=== PATIENT | male | born 1955 | race Caucasian/White ===

== ENCOUNTER 2019-09-23 11:44 | Outpatient (CLI) | payer MEDICARE, SELFPAY ==
--- NOTE | ~2019-09-23 | XR_ITS ---
EXAMINATION: XR ankle RT min 3V DATE: 09/23/2019 12:03 INDICATION: Right ankle pain. TECHNIQUE: 4 views of right ankle were obtained. COMPARISON: None. FINDINGS: Bone alignment is normal. No fracture. There is mild midfoot osteoarthritis. There are enth esophytes at the posterior and plantar aspects of calcaneal tuberosity. IMPRESSION: 1. Mild midfoot osteoarthritis. Reviewed, dictated and finalized at location B.
== END 2019-09-23 11:45 | disposition home or self-care (01) ==
LOC: ANHIMG 11:49
PROVIDERS: PCP Family Medicine; Visit Provider Family Medicine
DX: M19.071 Primary osteoarthritis, right ankle and foot (principal)
CPT/HCPCS: 73610

== ENCOUNTER 2020-12-26 11:22 | Outpatient (CLI) | payer MEDICARE, SELFPAY ==
--- NOTE | ~2020-12-26 | US_ITS ---
EXAMINATION: US carotid duplex BI DATE: 12/26/2020 12:00 INDICATION: Transient ischemic attack. TECHNIQUE: Grayscale, color Doppler, and pulsed Doppler images of the cervical carotid arteries were obtained. The degree of vessel stenosis is placed in one of the following categories: normal, <50%, 5 0-69%, >=70% but less than near-occlusion, near-occlusion, or total occlusion. Note that percent sten osis relative to normal distal artery lumen diameter is indirectly measured from velocity measurement s as described by Jonah, et al. Radiology 2003; 229:340-346. COMPARISON: None. FINDINGS: RIGHT: The right common carotid artery (CCA) peak systolic velocity (PSV) is 85 cm/s. The right internal car otid artery (ICA) PSV is 58 cm/s. The right ICA end-diastolic velocity (EDV) is 6 cm/s. The right ICA /CCA PSV ratio is 0.7. Grayscale and color Doppler images yield an estimate of <50% diameter reductio n from plaque in the ICA. There is antegrade flow in the right vertebral artery. LEFT: The left CCA PSV is 84 cm/s. The left ICA PSV is 102 cm/s. The left ICA EDV is 26 cm/s. The left ICA/ CCA PSV ratio is 1.2. Grayscale and color Doppler images yield an estimate of <50% diameter reduction from plaque in the ICA. There is antegrade flow in the left vertebral artery. IMPRESSION: 1. <50% stenosis in the right internal carotid artery. 2. <50% stenosis in the left internal carotid artery. Reviewed, dictated and finalized at location A. 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
--- NOTE | ~2020-12-26 | CT_ITS ---
EXAMINATION: CT brain wo con DATE: 12/26/2020 12:05 INDICATION: Dizziness and giddiness. TECHNIQUE: Computed tomography (CT) of the head was performed without intravenous contrast. The mA wa s adjusted according to patient size. Iterative reconstruction technique was employed. The dose-lengt h product was 605.33 mGy-cm. COMPARISON: Head CT 08/11/2013, brain MRI 09/01/2018 FINDINGS: There are scattered areas of low attenuation in the cerebral white matter, which is within normal limits for the patient's age. There is no intracranial hemorrhage, acute infarction, or abnorm al intracranial mass lesion. The ventricles are normal in size. There is mild mucosal thickening in t he ethmoid sinuses. The mastoid air cells are normal. The orbits are normal. IMPRESSION: 1. Normal aging brain. Reviewed, dictated and finalized at location A. OR ADVISOR IMPRESSION: 1. Normal aging brain.
== END 2020-12-26 11:23 | disposition home or self-care (01) ==
LOC: ANHIMG 11:33
PROVIDERS: PCP Family Medicine; Visit Provider Family Medicine
DX: R42 Dizziness and giddiness (principal); I65.23 Occlusion and stenosis of bilateral carotid arteries
CPT/HCPCS: 70450; 93880

== ENCOUNTER 2022-10-21 11:27 | Observation (INO) | payer MEDICARE, SELFPAY ==
[2022-10-21] VITALS (54 sets, daily range): BP systolic 93–153; BP diastolic 64–102; PULSE 57–86; RESP 11–22; TEMP 36.3–36.6; O2SAT 95–100; BMI 32.7
--- NOTE | ~2022-10-21 | NM_ITS ---
EXAMINATION: NM morales stress w perfusion DATE: 10/22/2022 14:36 INDICATION: Chest pain. TECHNIQUE: Rest images were obtained following intravenous administration of 10.3 mCi Tc99m tetrofosm in (Myoview). The patient was infused intravenously with Lexiscan (regadenoson). Then, 32.0 mCi Tc99m tetrofosmin (Myoview) was administered intravenously, and stress images were obtained. Data was dorothea nstructed into short axis and horizontal and vertical long axis SPECT images. Gated SPECT images were also obtained. COMPARISON: CT abdomen and pelvis 02/11/19 FINDINGS: There is no definite reversible or fixed perfusion abnormality to suggest ischemia or infar ction. There is no segmental wall motion abnormality. Left ventricular ejection fraction measures > 70%. IMPRESSION: 1. No definite ischemia or infarct. 2. Normal left ventricular ejection fraction measuring >70%. Reviewed, dictated and finalized at location A.
--- NOTE | ~2022-10-21 | XR_ITS ---
EXAMINATION: XR chest 2V DATE: 10/21/2022 12:43 INDICATION: Left chest pain. TECHNIQUE: Frontal and lateral views of the chest were obtained. COMPARISON: Chest 2 views 07/03/2018 FINDINGS: There is no pneumonia, pleural effusion, or pneumothorax. The heart size is normal. Median sternotomy wires and mediastinal surgical clips are seen, likely from prior coronary artery bypass gr afting. There is an electronic device overlying right chest with electrode in right neck. Surgical cl ips in the right upper quadrant are likely from cholecystectomy. IMPRESSION: 1. No acute cardiopulmonary disease. Reviewed, dictated and finalized at location A.
--- NOTE | 2022-10-21 11:32 | ECG_ITS ---
Measurements Intervals [place] Rate: 63 P: 3 MN: 180 QRS: -22 QRSD: 94 T: 52 QT: 409 QTc: 419 Interpretive Statements SINUS RHYTHM INFERIOR INFARCT, AGE INDETERMINATE BORDERLINE ST ABNORMALITY- ANTEROLAT/HIGH LAT LEADS ABNORMAL ECG NO PREVIOUS ECG AVAILABLE FOR COMPARISON Electronically Signed On 10-21-2022 13:18:59 CDT by Navid Mariano D.O.
[2022-10-21 12:38] LABS: Basophils Absolute Auto 0.1 K/mm3 (0.0-0.1); Basophils Percent Auto 0.8 % (0.2-1.2); Eosinophils Absolute Auto 0.2 K/mm3 (0-0.3); Eosinophils Percent Auto 2.8 % (0-4.4); Hemoglobin 15.5 g/dL (14.0-18.0); Immature Granulocyte Absolute 0.02 K/mm3 (0.00-0.031); Immature Granulocyte Percent A 0.3 % (0-0.5); Lymphocytes Absolute Auto 1.97 K/mm3 (0.9-3.2); Mean Corpuscular Hemoglobin 29.4 pg (26-34); Mean Corpuscular Volume 89.2 fl (80-100); Mean Platelet Volume 8.8 fl (7.4-10.4); Monocytes Absolute Auto 0.5 K/mm3 (0.1-0.6); Monocytes Percent Auto 8.6 % (2.6-8.5); Neutrophils Absolute Auto 3.4 K/mm3 (1.3-6.7); Neutrophils Percent Auto 55.5 % (45.5-73.1); Platelet Count Result 223 k/mm3 (150-375); Red Blood Count 5.27 M/mm3 (4.6-6.20); Red Cell Distribution Width 12.5 % (11.5-14.5); White Blood Count 6.2 K/mm3 (4.5-10.0)
[2022-10-21 12:48] LABS: Alanine Aminotransferase 44 U/L (6-50); Albumin Level 4.6 g/dL (3.5-5.1); Alkaline Phosphatase 72 U/L (38-126); Anion Gap 10 mmol/L (8-16); Aspartate Amino Transferase 37 U/L (17-59); Bilirubin,Total 0.9 mg/dL (0.2-1.3); Blood Urea Nitrogen 10 mg/dL (9-20); Carbon Dioxide 26 mmol/L (22-30); Chloride 101 mmol/L (98-107); Estimated CRCL calculation 115 ml/min; Estimated Glomerular Filt Rate > 60; Glucose 172 mg/dL (65-110); Lipase 110 U/L (23-300); Potassium 3.7 mmol/L (3.4-5.0); Sodium 137 mmol/L (137-145)
[2022-10-21 12:53] LABS: Partial Thromboplastin Time 25.2 SECONDS (22.3-36.8); Prothrombin Time 13.2 Seconds (11.1-14.7)
[2022-10-21 12:59] LABS: Troponin I < 0.012 ng/mL (0.000-0.034)
--- NOTE | 2022-10-21 15:10 | ED.CHESTPAIN ---
HPI - Chest Pain General Chief Complaint: Chest Pain Stated Complaint: chest pain Time Seen by Provider: 10/21/22 13:56 History of Present Illness HPI narrative: 66-year-old male presented the emergency department for evaluation of left-sided chest pain. Patient states on Friday after he had some acid reflux where he tasted and had increased cough associated with this. Patient states when he woke up on Friday he was having some increased left-sided chest pressure. Patient also reports that he did have some increased exertional shortness of breath when he walks his dog yesterday and today. When at rest patient denies any chest pressure chest tightness or shortness of breath. Patient does have a prior history of coronary disease and had a CABG and stent in 2016. Patient follows up with Dr. Lopez. Related Data Home Medications Medication Instructions Recorded Confirmed empagliflozin 25 mg-metformin ER 1 tablet PO DAILY 02/05/19 10/08/22 1,000 mg tablet,extended release 24hr (Synjardy XR) finasteride 5 mg tablet 5 mg PO DAILY 02/05/19 10/08/22 melatonin 10 mg tablet 10 mg PO ONCE 02/05/19 10/08/22 Allergies Allergy/AdvReac Type Severity Reaction Status Date / Time No Known Allergies Allergy Verified 10/21/22 13:56 Review of Systems Review of Systems: All systems reviewed & are unremarkable except as noted in HPI and below PMFSH Past Medical History Medical History (Updated 10/21/22 @ 18:41 by Bryan Posada MD) Anemia Anxiety Barretts esophagus Valdez palsy Coronary artery disease CVA (cerebral vascular accident) x3 Depression Diverticulitis Gastroesophageal reflux disease History of inguinal hernia History of rectal polyps Hypercholesteremia Hypertension Kidney stone Non-alcoholic micronodular cirrhosis of liver Obesity Obstructive sleep apnea Restless legs syndrome (RLS) Trigeminal neuralgia Type 2 diabetes mellitus Umbilical hernia Surgical History Surgical History (Updated 10/21/22 @ 16:56 by Kathryn Spicer PA-C) History of bladder surgery History of cardiac catheterization History of cholecystectomy History of colonoscopy with polypectomy History of coronary angioplasty History of coronary artery bypass graft (2017) History of inguinal hernia repair History of tonsillectomy Family History Family History Father Family history of diabetes mellitus in first degree relative Sibling Family history of diabetes mellitus in first degree relative Social History Social History (Updated 10/21/22 @ 16:56 by Kathryn Spicer PA-C) Social History: Surrogate medical decision maker: Code status: Full code. Smoking packs per day: 3 Smoking cigarettes per day: 60.0 Years smoked: 10 Smoking pack-years: 30.00 Smoking status: Former smoker Tobacco type: cigarettes Second hand tobacco smoke exposure: Yes Smoking end date: 02/10/99 Alcohol intake: never Substance use: never Substance use type: does not use Living arrangements: with family Occupation/Education: retired Exam Narrative: APPEARANCE: Well appearing, no pain, no distress, well-nourished. HEAD: normocephalic, atraumatic. EYES: PERRLA/EOMI, conjunctivae clear. NOSE: Normal no drainage NECK: Supple. No adenopathy, no masses. RESPIRATORY: Airway patent, respirations nonlabored. Clear to auscultation bilaterally, no rales, rhonchi, wheezing. CARDIOVASCULAR: Regular rate and rhythm without murmurs rubs or gallops. ABDOMINAL: Soft, nontender, nondistended, normal bowel sounds MUSCULOSKELETAL: Moves all extremities. Strength/ROM intact, No edema, No calf tenderness. NEURO: Alert. Cranial nerves II through XII intact. Grossly intact SKIN: Warm, dry. Normal Color PSYCHIATRIC: Normal affect/mood. Course Course Emergency Course: 66-year-old male presented the ED for evaluation of left-sided chest pressure and exertional shortness o
--- NOTE | 2022-10-21 16:47 | PM.IMHP ---
H&P: HPI History of Present Illness Date/Time: 10/21/22 16:50 Chief Complaint: Left-sided chest pain. Narrative: This is a 66-year-old male with coronary artery disease status post coronary bypass in 2017 who presented to the emergency department via private vehicle from home for evaluation of left-sided chest pain. The patient provides the following history. The last couple of days he has noticed an increase in acid reflux however reporting a burning and gnawing sensation in the epigastric region which spreads up into the esophagus in throat. It seems to be worse at nighttime but seems to improve simply with just water. Yesterday morning when he was walking the dog he felt more fatigued and short of air than usual and reports having a pressure-like discomfort in the left anterior chest. The symptoms improve with rest. He denies syncope, near syncope, pleuritic pain, palpitations, sensations of racing heart, nausea, vomiting, and sweats. Given his cardiac history he called Dr. Lopez's office and was told that he should probably go to the emergency department. Vital signs were stable on arrival. CMP and CBC were really unremarkable. Initial troponin was negative. EKG was reviewed and shows a sinus rhythm with borderline ST abnormalities in the anterolateral leads. He is being admitted in this setting for close monitoring and Cardiology consultation. Currently he has no discomfort. Review of Systems Review of Systems: Twelve systems were reviewed and are negative except for as per HPI. [facility] Past Medical History Medical History Anemia Anxiety Barretts esophagus Valdez palsy Coronary artery disease CVA (cerebral vascular accident) x3 Depression Diverticulitis Gastroesophageal reflux disease History of inguinal hernia History of rectal polyps Hypercholesteremia Hypertension Kidney stone Non-alcoholic micronodular cirrhosis of liver Obesity Obstructive sleep apnea Restless legs syndrome (RLS) Trigeminal neuralgia Type 2 diabetes mellitus Umbilical hernia Surgical History Surgical History History of bladder surgery History of cardiac catheterization History of cholecystectomy History of colonoscopy with polypectomy History of coronary angioplasty History of coronary artery bypass graft (2016) History of inguinal hernia repair History of tonsillectomy Family History Family History Father Family history of diabetes mellitus in first degree relative Sibling Family history of diabetes mellitus in first degree relative Social History Social History (Updated 10/26/22 @ 15:58 by Kathryn Spicer PA-C) Social History: Surrogate medical decision maker: Paul White, partner. Code status: Full code. Smoking packs per day: 3 Smoking cigarettes per day: 60.0 Years smoked: 10 Smoking pack-years: 30.00 Smoking status: Former smoker Tobacco type: cigarettes Second hand tobacco smoke exposure: Yes Smoking end date: 02/10/99 Alcohol intake: never Substance use: current Substance use type: does not use Lack of Transportation: No Lack of Food: Never True Current Housing: I Have Housing Concerned About Future Housing: No Difficulty Paying Gas/Electric Bills: No Difficulty Paying for Meds: No Currently Unemployed: No Education: Bachelor's Degree Difficulty w/ Childcare or Family Care: No Living arrangements: with family Occupation/Education: retired Spiritual care concerns: No Meds Home Medications and Allergies Home Medications Medication Instructions Recorded Confirmed Type empagliflozin 25 mg-metformin ER 1 tablet PO DAILY 02/05/19 10/21/22 History 1,000 mg tablet,extended release 24hr (Synjardy XR) finasteride 5 mg tablet 5 mg PO DAILY 02/05/19 10/21/22 History melatonin 10 mg t
[2022-10-21 16:50] LABS: Troponin I < 0.012 ng/mL (0.000-0.034)
[2022-10-21] MEDS: ACETAMINOPHEN 325 MG TABLET 650 MG PO (17:51)
[2022-10-21 20:01] LABS: Troponin I < 0.012 ng/mL (0.000-0.034)
--- NOTE | 2022-10-21 21:49 | ADMGEN ---
This patient, Ike Hobbs, was admitted to IMU Room 213-01. Patient/family oriented to hospital policies and general routines including ID bracelet, bed and alarms, visiting hours, pain management, procedures, bathroom and other care routines, personal items, smoking policy, room service/diet, and visiting hours. Information on how to activate the Rapid Response Team has been discussed. Patient/Family are encouraged to report perceived risks to care and to ask questions if they do not understand what they are told or what they should do.
[2022-10-21 22:04] LABS: Glucose Point of Care 224 mg/dl (65-105)
[2022-10-22] VITALS (11 sets, daily range): BP systolic 120–146; BP diastolic 57–68; PULSE 52–76; RESP 16–20; TEMP 36.4–36.6; O2SAT 98–100
[2022-10-22] MEDS: MELATONIN 5 MG TABLET 10 MG PO (02:04)
[2022-10-22] MEDS: clonazePAM (*CRX) 0.5 MG TABLET PO (02:04)
[2022-10-22] MEDS: ASPIRIN 81 MG ENTERIC TABLET PO (02:05)
[2022-10-22] MEDS: METOPROLOL TARTRATE 25 MG TABLET PO ×2 (02:05→09:39)
[2022-10-22 05:07] LABS: Anion Gap 6 mmol/L (8-16); Blood Urea Nitrogen 12 mg/dL (9-20); Calcium 8.9 mg/dL (8.4-10.2); Carbon Dioxide 32 mmol/L (22-30); Chloride 100 mmol/L (98-107); Estimated CRCL calculation 101 ml/min; Estimated Glomerular Filt Rate > 60; Glucose 125 mg/dL (65-110); Potassium 4.4 mmol/L (3.4-5.0); Sodium 138 mmol/L (137-145)
[2022-10-22 08:58] LABS: Glucose Point of Care 126 mg/dl (65-105)
--- NOTE | 2022-10-22 09:30 | PM.DS ---
DS: Admitting Diagnosis Discharge Date 10/22/22929 Admitting Diagnosis Chest pain, GERD DS: Discharge Diagnosis Discharge Diagnosis (1) Chest pain: Code(s): R07.9 - Chest pain, unspecified Status: Acute (2) Coronary artery disease: Code(s): I25.10 - Atherosclerotic heart disease of [place] coronary artery without angina pectoris Status: Acute (3) Hypertension: Code(s): I10 - Essential (primary) hypertension Status: Acute (4) Type 2 diabetes mellitus: Code(s): E11.9 - Type 2 diabetes mellitus without complications Status: Acute Plan The patient presented to the emergency department for evaluation of left-sided chest discomfort and shortness of breath with exertion as per HPI. Labs, imaging, EKG, and all reports were personally reviewed. Initial troponin was negative. EKG showed mild ST T-wave changes in the anterior lateral leads concerning for possible ischemia. However he has had increase in acid reflux symptoms recently which could be responsible for his symptoms as well. Given his cardiac history, Dr. Lopez has been consulted and his input is appreciated. Continue aspirin, beta-elvia, and statin. Blood pressures were reviewed and they have been stable. Continue basal insulin. Initiate sliding scale insulin, Accu-Cheks, and hypoglycemic protocol. The rest of his home medications will be reviewed and resumed as appropriate. DS: Summary Hospital Course Hospital Course: patient is 66-year-old male with a past medical history of CAD, alcohol abuse, BPH, hyperlipidemia, hypertension who presented to the ED with complaints of left-sided chest pain. Patient has been having some issues with acid reflux over the last couple days. He did state that the gastric reflux was going up into the esophagus in his throat. the night before last the patient woke up with chest pressure discomfort which he stated was sternal in nature. Patient did call Dr. Lopez office and was deferred to the ED. EKG showed sinus rhythm. Cardiology was consulted for further recommendations. Chest x-ray showed no acute cardiopulmonary disease. A1c was 7.0 troponins were negative times 3. Patient did go for a Lexiscan which showed An EF of 70% no ST changes or reversible ischemia noted.. currently patient denies any current chest pain, shortness a breath, nausea, vomiting, diarrhea or constipation. Patient did receive some aspirin in the ED however stated that he has not had any other issue since. Patient is stable for discharge per labs and vital signs. Patient will follow up with Cardiology outpatient as indicated instructed. Status at Discharge Functional status at discharge: independent ambulation Overall status at discharge: patient is progressing back to baseline Time Spent with Patient Time attestation: Total time spent providing and/or coordinating discharge services: 46 minutes Time spent: Greater than 30 minutes Specific discharge activities: Diagnostic testing, chart review, developing a treatment plan, education, care coordination documentation, physical exam, result review Exam Narrative: General: well-nourished, well-appearing 66-year-old male, laying in bed, comfortable, NARD Neuro: awake, alert and oriented x4, speech clear, no focal neuro deficits noted HEENMT: normocephalic, atraumatic, EOMI, sclerae anicteric, moist oral mucosa Respiratory: Clear to auscultation bilaterally without crackles, rhonchi or wheezes, nonlabored breathing Cardio: regular rate, regular rhythm with S1-S2 Abdomen: nondistended, normoactive bowel sounds, soft, nontender to palpation Extremities: no edema, erythema, or tenderness to palpation, DP pulses 2+ bilaterally Skin: no rashes or lesions, warm and dry Psych: appropriate mood and affect, judgment and insight intact DS: Data Data Completed and Pending Labs on day of discharge: Labs from last 24 hours 10/22/22 10/22/22 10/21/22 08:26 04:46 22:02
[2022-10-22] MEDS: ASPIRIN 81 MG CHEWABLE TABLET PO (09:37)
[2022-10-22] MEDS: EMPAGLIFLOZIN 25 MG TABLET BY MOUTH (09:38)
[2022-10-22] MEDS: ATORVASTATIN 40 MG TABLET PO (09:38)
[2022-10-22] MEDS: PARoxetine 20 MG TABLET PO (09:39)
[2022-10-22] MEDS: ACETAMINOPHEN 325 MG TABLET 650 MG PO (09:39)
[2022-10-22] MEDS: FINASTERIDE 5 MG TABLET PO (09:39)
[2022-10-22] MEDS: PANTOPRAZOLE 40 MG TABLET PO (09:39)
[2022-10-22] MEDS: metFORMIN HCL XR 500 MG TAB.SR.24H 1000 MG BY MOUTH (09:40)
--- NOTE | 2022-10-22 10:08 | EST_ITS ---
Patient Info Name: Ike Hobbs Age: 66 years : 1955 Gender: Male Ht: 68 in Wt: 215 lbs BSA: 2.20 m2 Exam Date: 10/22/2022 1:29 PM Exam Location: [facility] Stress Patient Status: Outpatient Admit Date: 10/21/2022 Staff Ordering Physician: Anup Moran MD Attending Provider: Paul Valenzuela MD Exercise Technologist: Pooja Vega RDCS Nurse: Shereen Morris APN Exam Type: CA stress morales w NM Study Info Indications R07.9 - Chest pain, unspecified A regadenoson stress test was performed. Summary 1. No abnormal ST/T wave changes diagnostic of ischemia with Lexiscan. 2. Please correlate with nuclear medicine images, reported separately. 3. Stress test supervised by Shereen Morris NP. Stress test interpreted by Anup Moran MD. Protocol: Lexiscan Stress ECG Details Stage: REST Duration (min): 0 min : 46 sec HR (bpm): 56 SBP (mmHg): 128 DBP (mmHg): 68 Stage: REST Duration (min): 4 min : 24 sec HR (bpm): 61 SBP (mmHg): 128 DBP (mmHg): 68 Stage: STAGE 1 Duration (min): 1 min : 0 sec HR (bpm): 72 SBP (mmHg): 171 DBP (mmHg): 64 Stage: RECOVERY Duration (min): 1 min : 0 sec HR (bpm): 79 SBP (mmHg): 171 DBP (mmHg): 64 Stage: RECOVERY Duration (min): 2 min : 0 sec HR (bpm): 76 SBP (mmHg): 152 DBP (mmHg): 66 Stage: RECOVERY Duration (min): 3 min : 0 sec HR (bpm): 73 SBP (mmHg): 139 DBP (mmHg): 67 Stage: RECOVERY Duration (min): 3 min : 17 sec HR (bpm): 71 SBP (mmHg): 139 DBP (mmHg): 67 Rest HR: 61 bpm Peak HR: 80 bpm Rest Sys BP: 128 mmHg Peak Sys BP: 171 mmHg Max Pred HR: 154 bpm % Max Pred HR: 52 % Target HR: 131 bpm Max RPP: 13,680 bpm*mmHg Total Time: 1 min : 0 sec Rest Alfaro BP: 68 mmHg Peak Alfaro BP: 64 mmHg Total Dose: 0.4 mg Resting ECG Sinus bradycardia. Stress ECG Sinus rhythm. No abnormal ST/T wave changes diagnostic of ischemia with Lexiscan. Arrhythmias None. Report Signatures
--- NOTE | 2022-10-22 12:08 | PM.CNCAR ---
Assessment and Plan Assessment and plan (1) Left-sided chest pain: Code(s): R07.9 - Chest pain, unspecified Status: Acute Assessment and Plan: Will obtain Lexiscan. (2) Coronary artery disease: Code(s): I25.10 - Atherosclerotic heart disease of [place] coronary artery without angina pectoris Status: Acute Assessment and Plan: Continue ASA, statin (3) Gastroesophageal reflux disease: Code(s): K21.9 - Gastro-esophageal reflux disease without esophagitis Status: Acute Assessment and Plan: Continue Protonix (4) Type 2 diabetes mellitus: Code(s): E11.9 - Type 2 diabetes mellitus without complications Status: Acute Assessment and Plan: Management as per primary team Plan If Lexiscan looks okay, patient can be discharged home from a cardiac standpoint. Recommendations/plan discussed with Hospitalist. History of Present Illness History of Present Illness Consult date/time: 10/22/22 12:08 Reason For Visit: Chest Pain, Exertional Shortness of Breath Narrative: We are consulted for chest pain. This is a 66 year old male with coronary artery disease s/p CABG who follows with Dr. Lopez. Patient had a stress echocardiogram 12/01 that was negative for ischemia at MPHR of 81%. Patient states that on Friday morning, he awoke with heart burn symptoms. He then developed left sided chest pressure. Patient states he does have acid reflux and does have certain trigger foods that cause it to flare, but he hadn't eaten any of those recently and otherwise hasn't had any issues with his acid reflux in a while. Patient states that his pain resolved after sometime but then had recurrence with intermittent episodes later on Friday. Patient contact our office on Friday morning who advised to seek care in the ED. Workup in the ED shows CXR without acute findings. EKG with sinus rhythm, nonspecific STTW abnormalities. Troponins negative x 3. Patient does report some shortness of breath when walking his dog. Patient hasn't had recurrence in his acid reflux symptoms or left sided chest pain since Friday. Review of Systems Review of Systems: All systems reviewed & are unremarkable except as noted in HPI and below (HPI) PMFSH Past Medical History Medical History Anemia Anxiety Barretts esophagus Valdez palsy Coronary artery disease CVA (cerebral vascular accident) x3 Depression Diverticulitis Gastroesophageal reflux disease History of inguinal hernia History of rectal polyps Hypercholesteremia Hypertension Kidney stone Non-alcoholic micronodular cirrhosis of liver Obesity Obstructive sleep apnea Restless legs syndrome (RLS) Trigeminal neuralgia Type 2 diabetes mellitus Umbilical hernia Surgical History Surgical History History of bladder surgery History of cardiac catheterization History of cholecystectomy History of colonoscopy with polypectomy History of coronary angioplasty History of coronary artery bypass graft (2016) History of inguinal hernia repair History of tonsillectomy Family History Family History Father Family history of diabetes mellitus in first degree relative Sibling Family history of diabetes mellitus in first degree relative Social History Social History Social History: Surrogate medical decision maker: Code status: Full code. Smoking packs per day: 3 Smoking cigarettes per day: 60.0 Years smoked: 10 Smoking pack-years: 30.00 Smoking status: Former smoker Tobacco type: cigarettes Second hand tobacco smoke exposure: Yes Smoking end date: 02/10/99 Alcohol intake: never Substance use: current Substance use type: does not use Lack of Transportation: No Lack of Food: Never True Current Housing: I Have Roger
[2022-10-22 12:52] LABS: Glucose Point of Care 121 mg/dl (65-105)
== END 2022-10-22 16:03 | disposition home or self-care (01) ==
LOC: ANHED 18:41 → ANHIMU 21:53
PROVIDERS: Physician Assistant; Admitting Provider Chiropractor; Emergency Provider Emergency Medicine; PCP Family Medicine; Visit Provider Nurse Practitioner
DX: R07.9 Chest pain, unspecified (principal); K21.9 Gastro-esophageal reflux disease without esophagitis; R05.9 Cough, unspecified; R06.09 Other forms of dyspnea; I25.10 Atherosclerotic heart disease of native coronary artery without angina pectoris; Z95.1 Presence of aortocoronary bypass graft; R42 Dizziness and giddiness; E11.9 Type 2 diabetes mellitus without complications; Z87.891 Personal history of nicotine dependence; N40.0 Benign prostatic hyperplasia without lower urinary tract symptoms; D64.9 Anemia, unspecified; F41.9 Anxiety disorder, unspecified; F32.A Depression, unspecified; E78.00 Pure hypercholesterolemia, unspecified; R94.31 Abnormal electrocardiogram [ECG] [EKG]; G25.81 Restless legs syndrome; I10 Essential (primary) hypertension; E66.9 Obesity, unspecified; Z68.32 Body mass index [BMI] 32.0-32.9, adult; Z86.73 Personal history of transient ischemic attack (TIA), and cerebral infarction without residual deficits; Z79.82 Long term (current) use of aspirin; Z86.69 Personal history of other diseases of the nervous system and sense organs; Z79.899 Other long term (current) drug therapy; Z83.3 Family history of diabetes mellitus
CPT/HCPCS: 36415; 71046; 78452; 80048; 80053; 82948; 83036; 83690; 83735; 84484; 85025; 85610; 85730; 93005; 93017; 99285; A9270; A9502; G0378; J2785

== ENCOUNTER 2023-06-04 10:09 | Outpatient (CLI) | payer MEDICARE, SELFPAY ==
[2023-06-04 11:20] LABS: Alanine Aminotransferase 41 U/L (6-50); Albumin Level 4.7 g/dL (3.5-5.1); Alkaline Phosphatase 76 U/L (38-126); Anion Gap 10 mmol/L (4-12); Aspartate Amino Transferase 31 U/L (17-59); Blood Urea Nitrogen 12 mg/dL (9-20); CRP < 0.5 mg/dL (<1.0); Carbon Dioxide 29 mmol/L (22-30); Chloride 102 mmol/L (98-107); Estimated Glomerular Filt Rate > 60; Glucose 158 mg/dL (65-110); Potassium 4.3 mmol/L (3.4-5.0); Sodium 141 mmol/L (137-145); Uric Acid 3.7 mg/dL (3.5-8.5)
[2023-06-04 11:23] LABS: Rheumatoid Factor < 12.0 IU/ML (<12)
[2023-06-04 11:27] LABS: Erythrocyte Sedimentation Rate 14 mm/hr (0-20)
[2023-06-05 21:13] LABS: HLA B27 NEGATIVE (NEGATIVE)
== END 2023-06-04 10:10 | disposition home or self-care (01) ==
LOC: ANHLAB 10:23
PROVIDERS: PCP Family Medicine; Visit Provider Podiatrist Foot & Ankle Surgery
DX: M06.9 Rheumatoid arthritis, unspecified (principal); M10.071 Idiopathic gout, right ankle and foot; M45.6 Ankylosing spondylitis lumbar region
CPT/HCPCS: 36415; 80053; 84550; 85652; 86038; 86140; 86430; 86812

== ENCOUNTER 2023-08-27 12:04 | Outpatient (CLI) | payer MEDICARE, SELFPAY ==
[2023-08-27 12:59] LABS: Anion Gap 10 mmol/L (4-12); Blood Urea Nitrogen 18 mg/dL (9-20); Calcium 9.4 mg/dL (8.4-10.2); Carbon Dioxide 28 mmol/L (22-30); Chloride 101 mmol/L (98-107); Estimated Glomerular Filt Rate > 60; Glucose 114 mg/dL (65-110); Potassium 4.2 mmol/L (3.4-5.0); Sodium 139 mmol/L (137-145)
== END 2023-08-27 12:05 | disposition home or self-care (01) ==
PROVIDERS: PCP Family Medicine; Visit Provider Anesthesiology
DX: Z01.818 Encounter for other preprocedural examination (principal); E11.9 Type 2 diabetes mellitus without complications
CPT/HCPCS: 36415; 80048

== ENCOUNTER 2023-08-29 00:15 | Day surgery (SDC) | payer MEDICARE, SELFPAY ==
[2023-08-26 13:43] VITALS: BMI 32.3
--- NOTE | 2023-08-26 13:49 | PC.NURSE ---
Report to the Outpatient Waiting Room, entrance under the green pavilion located off [facility], at time ____6am___ on date __08/29/23 . Planned Procedure Time: ___730 . Time changes happen often and if your time is changed the preop area will call you the afternoon before. - You and your visitor will be asked to self-screen and do not enter if you have any COVID symptoms. - A mask is optional within the hospital at this time. Patients may have clear liquids (water, carbonated beverages, clear teas, apple juice) until 3 hours prior to surgery with a maximum of 20 ounces. 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 No jewelry (including any body piercings) or valuables the day of surgery, leave them at home. Please take a shower or bath the night before, or the morning of, surgery with an antibacterial soap. Wear comfortable, loose fitting clothing. Children are encouraged to wear pajamas. - Jewelry must be removed prior to entering the operating room. Rings and piercings that are not removed may be cut off. - The hospital will not accept responsibility for valuables. - Please leave all valuables, including medications, at home the day of surgery. If you are going home after surgery, a licensed wrecker driver must drive you home. - NO public transportation without another adult if you receive anesthesia. - We recommend that an adult stay with you for 24 hours following discharge. - We also recommend that you do not drive, make important decision, drink alcoholic beverages, or take any drugs that were not prescribed by your health care provider for at least 24 hours after your discharge time. Follow any additional instructions given to you from your surgeon. If you or anyone in your household have experienced Covid symptoms in the past week, please notify your surgeon or the nurse liaison at the phone number below for possible testing. Telephone instructions given to patient and asked if any additional questions and then verbalized understanding. Patient advised to call surgeon office or pre surgery nurse liaison [phone] if any additional questions.
--- NOTE | ~2023-08-29 | XR_ITS ---
EXAMINATION: XR surgery orthopedic DATE: 08/29/2023 08:50 INDICATION: Left hammertoe repair TECHNIQUE: 2 dorsal plantar edges of the left forefoot were obtained during procedure performed by Dr Yvette Cooper. Radiologist was not present for the imaging or procedure. The amount of fluoroscopy time used during this procedure was 0.1 minutes. COMPARISON: None. FINDINGS: Arthrodesis at the second and third proximal interphalangeal joints with osteotomies at both sides of the joint spaces in both with internal fixation devices. Alignment appears essentially anatomic on t he provided projection. Expected soft tissue swelling and some soft tissue gas at the operative beds. No fracture. Mild osteoarthritis at a few of the remaining interphalangeal joints. IMPRESSION: 1. Expected appearance post instrumented arthrodesis at the left second and third proximal interphala ngeal joints. See procedure note for further detail. Reviewed, dictated and finalized at location A. IMPRESSION: 1. Expected appearance post instrumented arthrodesis at the left second and thi rd proximal interphalangeal joints. See procedure note for further detail.
[2023-08-29 05:59] VITALS: BP 135/69; PULSE 59; RESP 18; TEMP 36.3; O2SAT 99
[2023-08-29 06:17] LABS: Glucose Point of Care 120 mg/dl (65-105)
[2023-08-29] MEDS: LACTATED RINGERS 1,000 ML 30 ML IV CONT (06:20)
--- NOTE | 2023-08-29 07:14 | WPDHPUPDATE1 ---
History and Physical Update Update Date/Time: 08/29/23 07:14 History and Physical has been reviewed, including an updated exam of the patient. There are NO changes in the patient's condition. Risks, benefits, and alternatives have been discussed and questions answered. Patient agrees to proceed with procedure.
--- NOTE | 2023-08-29 07:16 | WPDANESEPPF ---
Anes - Initial Pre Proc Eval Procedure: Operation Date: 08/29/23 07:30 Proposed Procedures p Hammer Toe Repair Second and Third Digits Left Foot - Hoang Cooper Jr., DPM Date/Time: 08/29/23 07:16 Surgeon: Hoang Cooper Jr., DPM Pre Op Diagnosis: hammer toe 2nd & 3rd digits left foot Patient Data Age: 67 Gender: M Height: 1.73 m Weight: 92.5 kg Last Vital Signs Temp 97.3 F L 08/29/23 05:59 Pulse 59 L 08/29/23 05:59 Resp 18 08/29/23 05:59 BP 135/69 08/29/23 05:59 Pulse Ox 99 08/29/23 05:59 O2 Del Method Room Air 08/29/23 05:59 Allergies Allergy/AdvReac Type Severity Reaction Status Date / Time No Known Allergies Allergy Verified 08/29/23 06:22 Home Medications Medication Instructions Recorded Confirmed Type empagliflozin 25 mg-metformin ER 1 tablet PO DAILY 02/05/19 08/29/23 History 1,000 mg tablet,extended release 24hr (Synjardy XR) melatonin 10 mg tablet 10 mg PO QHS 02/05/19 08/29/23 History lancets #200 ea 04/14/20 04/14/23 Rx blood sugar diagnostic (OneTouch #300 strips 07/30/22 04/14/23 Rx Ultra Test strips) aspirin 81 mg tablet,delayed 81 mg PO QHS 10/21/22 08/29/23 History release atorvastatin 40 mg tablet 40 mg PO DAILY 10/21/22 08/29/23 History insulin glargine 100 unit/mL (3 30 unit (0.3 mL) subcut DAILY #15 11/25/22 08/29/23 Rx mL) subcutaneous pen (Basaglar mL KwikPen U-100 Insulin) metoprolol tartrate 25 mg tablet See Rx Instructions .Route 02/14/23 08/29/23 Rx .COMPLEX #180 tabs pantoprazole 40 mg tablet,delayed 40 mg PO BID #180 tabs 04/07/23 08/29/23 Rx release finasteride 5 mg tablet 5 mg PO DAILY #90 tabs 04/21/23 08/29/23 Rx lancets 30 gauge (OneTouch Delica #200 ea 05/27/23 Rx Plus Lancet) paroxetine HCl 20 mg tablet 20 mg PO DAILY #90 tabs 08/08/23 08/29/23 Rx clonazepam 0.5 mg tablet 0.5 mg PO .qhs #90 tabs 08/12/23 08/29/23 Rx pen needle, diabetic 32 gauge x #100 ea 08/25/23 Rx 1/4 (Novofine 32) Laboratory Tests 08/29/23 06:14 POC Capillary Glucose 120 H mg/dl (65-105) Patient hx anesthesia problems: none Family hx anesthesia problems: none Results Review: All pre-operative results and documents have been reviewed as part of the pre-operative evaluation. [facility] Past Medical History Medical History Anemia Anxiety Barretts esophagus Valdez palsy Coronary artery disease CVA (cerebral vascular accident) x3 Depression Diverticulitis Gastroesophageal reflux disease History of inguinal hernia History of rectal polyps Hypercholesteremia Hypertension Kidney stone Non-alcoholic micronodular cirrhosis of liver Obesity Obstructive sleep apnea Restless legs syndrome (RLS) Trigeminal neuralgia Type 2 diabetes mellitus Umbilical hernia Surgical History Surgical History History of bladder surgery History of cardiac catheterization History of cholecystectomy History of colonoscopy with polypectomy History of coronary angioplasty History of coronary artery bypass graft (2016) History of inguinal hernia repair History of tonsillectomy Family History Family History Father Family history of diabetes mellitus in first degree relative Sibling Family history of diabetes mellitus in first degree relative Social History Social History Social History: Surrogate medical decision maker: Paul Cainon, partner. Code status: Full code. Smoking packs per day: 3 Smoking cigarettes per day: 60.0 Years smoked: 10 Smoking pack-years: 30.00 Smoking status: Never smoker Tobacco type: cigarettes Second hand tobacco smoke exposure: Yes Smoking end date: 02/10/99 Alcohol intake: never Substance use: never Substance use type: does not u
[2023-08-29] MEDS: ceFAZolin 2 GM/D5W 50 ML 2 GM/50 ML BAG IVPB (07:24)
[2023-08-29] MEDS: BUPivacaine HCL 0.5% 10 ML AMP INFILTRATE (07:43)
[2023-08-29] MEDS: LIDOCAINE HCL 2% PF INJ 5 ML VIAL 10 ML INFILTRATE (07:44)
--- NOTE | 2023-08-29 08:23 | W.PM.PROC2 ---
Procedure Note - Detailed Date of Procedure 08/29/23 Pre-op Diagnosis Hammer toe 2nd & 3rd digits left foot Post-op Diagnosis Same Procedure Performed Hammertoe repair 2nd and 3rd digits left foot Surgeon Hoang Cooper Jr., DPM Anesthesia MAC and Local Indications Painful 2nd and 3rd digits left foot due to contracture Description of Procedure Description of Procedure Under mild sedation, the patient was brought to the operating room, placed on the operating table in the supine position. A pneumatic ankle tourniquet was placed about the patient's ankle. Following IV sedation and a proximal foot block with 20cs's of a one to one mixture of 2% Lidocaine plain and 0.5% Marcaine plain, the foot was then scrubbed, prepped, and draped in the usual aseptic manner. An Esmarch bandage was then used to examine the patient's foot and pneumatic ankle tourniquet was then inflated. Surgery began in the following manner. Attention was directed to the second digit of the foot where a 3cm incision was made from the distal interphalangeal joint extending to the base of the 2nd digit. Dissection was continued deep to the dorsum of the proximal interphalangeal joint. A transverse tenotomy was created dorsal to the proximal interphalangeal joint, next the head of the proximal phalanx was resected with an oscillating saw blade, the Arthrex Dynanite hammertoe planer was used to denude and prepare the joint for the hammertoe implant from the base of the middle phalanx and distal proximal phalanx. Next, I implanted the Arthrex Dynanite size 14mm hammertoe implant using standard technique. Fluoroscopy was used to make sure that the digit and implant were appropriately positioned. I reapproximated the extensor tendon over the fused proximal phalangeal joint of the digit with 4.0 Vicryl. I reapproximated the subcutaneous structures with 4.0 Vicryl and the skin with 4.0 Prolene in horizontal mattress suture fashion technique. The exact procedure was duplicated for the 3rd digit with the only difference being that I implanted a size 12mm hammertoe implant. Upon completion of the procedure, the incision was dressed with Adaptic, 4 x 4's, Kerlix, and Coban. The pneumatic ankle tourniquet was then deflated and a prompt hyperemic response noted to all digits of the foot. A surgical shoe was then applied. The patient did very well with the procedure and the anesthesia. The patient was transferred to the recovery room with vital signs stable and vascular status intact to all toes of the affected foot. Following a period of postoperative monitoring, the patient will be discharged home on the following written and oral postoperative instructions: 1. Keep the dressing clean, dry, and intact. Use a cast protector bag with showers. 2. The patient should use a surgical shoe for ambulation postoperatively. 3. The patient should be on bedrest with bathroom privileges and elevate the affected foot when at rest. 4. The patient to contact Dr. Cooper for all postop care and if any problems arise. 5. Prescriptions were written for Percocet 5/325 dispensed 40 to be taken 1 p.o. q.4 to 6 hours as needed for severe pain. 6. Take one Aspirin 325mg every 24hours for two weeks post operatively. Implants Arthrex Dynanite Hammertoe implants (2) size 14mm and 12mm Estimated Blood Loss 1 Drains No Packing No Pathology None sent Complications No immediate complications Condition Stable Disposition Same day
[2023-08-29 08:29] VITALS: BP 127/68; PULSE 62; RESP 16; O2SAT 100
[2023-08-29 08:35] LABS: Glucose Point of Care 118 mg/dl (65-105)
[2023-08-29 08:45] VITALS: BP 116/62; PULSE 61; RESP 16; O2SAT 94
[2023-08-29 09:15] VITALS: BP 137/65; PULSE 61; RESP 14
== END 2023-08-29 09:24 | disposition home or self-care (01) ==
PROVIDERS: PCP Family Medicine; Visit Provider Podiatrist Foot & Ankle Surgery
PROC: (CPT 28285; principal; 2023-08-29 07:30)
DX: M20.42 Other hammer toe(s) (acquired), left foot (principal); M19.071 Primary osteoarthritis, right ankle and foot; M10.071 Idiopathic gout, right ankle and foot; I10 Essential (primary) hypertension; E11.9 Type 2 diabetes mellitus without complications; Z95.1 Presence of aortocoronary bypass graft; E78.00 Pure hypercholesterolemia, unspecified
CPT/HCPCS: 28285; 82948; 99199; C1713; J0690; J2250; J2405; J2704; J3010; J7120

== ENCOUNTER 2023-10-22 11:00 | Outpatient (CLI) | payer MEDICARE, SELFPAY ==
[2023-10-22 11:54] LABS: Alanine Aminotransferase 49 U/L (6-50); Albumin Level 4.6 g/dL (3.5-5.1); Alkaline Phosphatase 71 U/L (38-126); Anion Gap 11 mmol/L (4-12); Aspartate Amino Transferase 39 U/L (17-59); Bilirubin,Total 1.2 mg/dL (0.2-1.3); Blood Urea Nitrogen 14 mg/dL (9-20); Carbon Dioxide 27 mmol/L (22-30); Chloride 99 mmol/L (98-107); Estimated Glomerular Filt Rate > 60; Glucose 113 mg/dL (65-110); Potassium 3.9 mmol/L (3.4-5.0); Sodium 137 mmol/L (137-145)
== END 2023-10-22 11:01 | disposition home or self-care (01) ==
LOC: ANHLAB 11:04
PROVIDERS: PCP Family Medicine; Visit Provider Family Medicine
DX: E11.9 Type 2 diabetes mellitus without complications (principal)
CPT/HCPCS: 36415; 80053; 83036

== ENCOUNTER 2024-02-24 10:00 | Outpatient (CLI) | payer MEDICARE, SELFPAY ==
[2024-02-24 11:14] LABS: Alanine Aminotransferase 42 U/L (6-50); Albumin Level 4.4 g/dL (3.5-5.1); Alkaline Phosphatase 125 U/L (38-126); Anion Gap 7 mmol/L (4-12); Aspartate Amino Transferase 28 U/L (17-59); Bilirubin,Total 1.2 mg/dL (0.2-1.3); Blood Urea Nitrogen 19 mg/dL (9-20); Calcium 8.9 mg/dL (8.4-10.2); Carbon Dioxide 32 mmol/L (22-30); Chloride 100 mmol/L (98-107); Estimated Glomerular Filt Rate > 60; Glucose 108 mg/dL (65-110); Potassium 3.9 mmol/L (3.4-5.0); Sodium 139 mmol/L (137-145)
[2024-02-24 19:06] LABS: Hemoglobin A1C 7.2 % (<5.7)
== END 2024-02-24 10:01 | disposition home or self-care (01) ==
PROVIDERS: PCP Family Medicine; Visit Provider Family Medicine
DX: E11.9 Type 2 diabetes mellitus without complications (principal)
CPT/HCPCS: 36415; 80053; 83036

== ENCOUNTER 2024-06-30 09:53 | Outpatient (CLI) | payer MEDICARE, SELFPAY ==
[2024-06-30 10:21] LABS: Hematocrit 48.1 % (42.0-52.0); Hemoglobin 15.3 g/dL (14.0-18.0); Mean Corpuscular HGB Conc 31.8 g/dl (32-36); Mean Corpuscular Hemoglobin 28.9 pg (26-34); Mean Corpuscular Volume 90.8 fl (80-100); Mean Platelet Volume 8.8 fl (7.4-10.4); Platelet Count Result 224 k/mm3 (150-375); Red Cell Distribution Width 12.8 % (11.5-14.5); White Blood Count 6.8 K/mm3 (4.5-10.0)
[2024-06-30 10:27] LABS: Add Urine Microscopic? YES; Appearance Urine Clear (Clear); Bacteria Urine None Seen /hpf; Bilirubin Urine Negative (Negative); Blood Urine Negative (Negative); Color Urine Yellow (Yellow); Glucose Urine UA 3+ mg/dL (Negative); Ketones Urine Negative (Negative); Leukocyte Esterase Ur Negative LEU/UL (Negative); Nitrate Urine Negative (Negative); Non Pathogenic Casts 0-2; Protein Urine Trace mg/dL (Negative); RBC Urine 0-2 /hpf (0-2); Specific Grav Ur > 1.045 (1.001-1.035); Squamous Epithelial Cell Urine None Seen /hpf (Few); WBC Urine 0-5 /hpf (0-3); pH Urine 6.5 (5.0-9.0)
--- OUTSIDE RECORDS SUMMARY | 2024-06-30 10:31 | XMS_ITS | Clinical Summary ---
Author Organization [facility] Address [address] [place] [address] Care Team Providers Care Newspaper Photo Editor Name Role Phone Brigido Bynum MD Primary Care Provider Allergies No known active allergies Medications atorvastatin (LIPITOR) 40 mg tabletIndication s:hyperlipidemia Take 1 tablet (40 mg total) by mouth every morning Active aspirin 81 mg tablet TAKE 1 TABLET BY MOUTH EVERY DAY 30 tablet 5 8 Active Additional Information Patient taking differently: 81 mg oral Nightly, Indications: for stents, Reported on 04/26/2024 clonazePAM (KlonoPIN) 0.5 mg tabletIndication s:anxiety/ restless legs Take 1 tablet (0.5 mg total) by mouth nightly Active finasteride (PROSCAR) 5 mg tabletIndication s:benign prostatic hyperplasia with lower urinary tract sx Take 1 tablet (5 mg total) by mouth every morning 12 8 Active meclizine (ANTIVERT) 25 mg tabletIndication s:Vertigo Take 1 tablet (25 mg total) by mouth 3 (three) times a day as needed 0 9 Active metoprolol (LOPRESSOR) 25 mg tabletIndication s:hypertension Take 1 tablet (25 mg total) by mouth 2 (two) times a day Active melatonin 10 mg tabletIndication s:SLEEP Take 1 tablet (10 mg total) by mouth nightly Active empagliflozin-me tformin (Synjardy) 5-1,000 mg tablet Take 5-1,000 mg by mouth clinical education academic coordinator before breakfast 90 tablet 3 2 Active [place] SoftwareTouch Ultra Test strip TEST BLOOD SUGAR 2-4 TIMES DAILY. 2 Active OneTouch Delica Plus Lancet 30 gauge misc USE DIRECTED TO CHECK BLOOD SUGAR 3 TIMES A DAY 2 Active PARoxetine (PAXIL) 20 mg tablet Take 1 tablet (20 mg total) by mouth every morning Active pantoprazole DR (PROTONIX) 40 mg EC tablet Take 1 tablet (40 mg total) by mouth 2 (two) times a day Active Novofine 32 32 gauge x 1/4 needle 3 Active TOUJEO 300 unit/mL (1.5 mL) pen for injection INJECT 30 UNITS INTO SKIN DAILY AT BEDTIME 5 Active Active Problems Problem Noted Date Diagnosed Date S/P placement of hypoglossal nerve stimulator Dyspnea on effort 10/30/2021 BEL (obstructive sleep apnea) 10/10/2021 Overview (01/16/2022): DIAGNOSIS: Obstructive sleep apnea PROCEDURE PERFORMED:(Toby 12/31/21) Right hypoglossal nerve stimulator implantation Generator placement right chest wall Lead placement right intercostal muscle Hyperlipidemia associated with type 2 diabetes genevieve greenfield 07/15/2017 Assessment & Plan (04/24/2023 10:20 AM CDT): Chronic , stable LDL at goal Continue Atorvastatin Assessment & Plan (12/19/2022 10:17 AM [employer]): Chronic problem. Controlled on current Atorvastatin 40mg. Last lipid panel: 05/09/22 LDL=71, XW=244. No changes at this time. Assessment & Plan (08/29/2022 10:15 AM CDT): Chronic problem. Controlled on current Atorvastatin 40mg. Last lipid panel: 05/09/22 LDL=71, DJ=645. No changes at this time. Assessment & Plan (05/09/2022 11:36 AM CDT): LDL goal under 70 Update lipid profile Continue Atorvastatin Assessment & Plan (11/08/2021 1:01 PM CDT): Chronic, well controlled Low fat Low cholesterol diet Exercise Continue statin therapy Assessment & Plan (05/01/2021 2:12 PM CDT): Chronic, well controlled Low fat Low cholesterol diet Exercise Continue statin therapy Assessment & Plan (07/20/2019 9:54 AM CDT): Goal of treatment , LDL cholesterol less than 100 ( less than 70 in patients with history of heart attacks and / or strokes ) NonHDL cholesterol ( total cholesterol minus HDL cholesterol ) goal less than 130 ( less than 100 in patients with history of heart attacks and / or strokes ) Low cholesterol, low fat diet was discussed and advised. Daily exercise On statin therapy with Lipitor Lipid panel checked today Assessment & Plan (01/05/2019 2:21 PM [employer]IN[employer]ING STE[employer]): Goal of treatment , LDL cholesterol less than 100 ( less than 70 in patients with history of heart attacks and / or strokes ) NonHDL cholesterol ( total cholesterol minus HDL cholesterol ) goal less than 130 ( less than 100 in patients with history of heart attacks and / or strokes ) Low cholesterol, low fat diet was discussed and advised. Daily exercise On statin therapy Assessment & Plan (09/22/2018 3:03 PM CDT): Goal of treatment , LDL cholesterol less than 100 ( less than 70 in patients with history of heart attacks and / or strokes ) NonHDL cholesterol ( total cholesterol minus HDL cholesterol ) goal less than 130 ( less than 100 in patients with history of heart attacks and / or strokes ) Low cholesterol, low fat diet was discussed and advised. Daily exercise On statin therapy Assessment & Plan (02/19/2018 10:17 AM [employer]IN[employer]ING STEEL [employer]): Goal of treatment , LDL cholesterol less than 100 ( less than 70 in patients with history of heart attacks and / or strokes ) NonHDL cholesterol ( total cholesterol minus HDL cholesterol ) goal less than 130 ( less than 100 in patients with history of heart attacks and / or strokes ) Low cholesterol, low fat diet was discussed and advised. Daily exercise On statin therapy Assessment & Plan (07/15/2017 11:25 AM CDT): Goal of treatment , LDL cholesterol less than 100 ( less than 70 in patients with history of heart attacks and / or strokes ) NonHDL cholesterol ( total cholesterol minus HDL cholesterol ) goal less than 130 ( less than 100 in patients with history of heart attacks and / or strokes ) Low cholesterol, low fat diet was discussed and advised. Daily exercise On statin therapy Hx of CABG 02/18/2017 Type 2 diabetes mellitus wit h hyperglycemia, with long-term current use of insulin 12/17/2016 Assessment & Plan (04/24/2023 10:20 AM CDT): Chronic, well controlled Encouraged to continue working on diet and exercise Nayeli Pires and Synjardy. Assessment & Plan (12/19/2022 10:33 AM REIN[employer]CING STEEL [employer]ER): Chronic problem. Near goal, jamee from A1c 7.2% 08/2022 to now 7.6%. has started his holiday baking. Aware to watch intake. Current medications: Synjardy 5-1000mg before breakfast Levemir 30 units nightly UTD on DM eye exam. UTD on labs. Strive for regular exercise (30min most days) and diet (get at least 4-5 servings of fruit and veggies daily, avoid processed foods, increase lean protein intake and decrease carb portions as well as fruit juices, regular soda & desserts). Watch carbs and simple sugars. Check the blood sugar daily. Check the feet daily for skin breakdown and infection. Assessment & Plan (08/29/2022 10:32 AM CDT): Chronic problem. Near goal, improved A1c (7.9% 04/2022 to now 7.2%). no changes at this time. Current medications: Synjardy 5-1000mg before breakfast Levemir 30 units nightly UTD on DM eye exam. UTD on labs. Strive for regular exercise (30min most days) and diet (get at least 4-5 servings of fruit and veggies daily, avoid processed foods, increase lean protein intake and decrease carb portions as well as fruit juices, regular soda & desserts). Watch carbs and simple sugars. Check the blood sugar daily. Check the feet daily for skin breakdown and infection. Assessment & Plan (05/09/2022 11:38 AM CDT): Hba1c was Lab Results Component Value Date HGBA1C 7.9 05/09/2022 today, indicating inadequate DM control Goal Hba1c and blood glucose explained Diet and exercise were advised Prevention and treatment of hyypoglcyemia were discussed with the patient Blood glucose monitoring : 2 x day Adjustment to medications: Restart it on Synjardy Continue Levemir Assessment & Plan (11/08/2021 1:01 PM CDT): Hba1c was Lab Results Component Value Date HGBA1C 7.2 11/08/2021 today, indicating suboptimal DM control Goal Hba1c and blood glucose explained Diet and exercise were advised Prevention and treatment of hyypoglcyemia were discussed with the patient Blood glucose monitoring : 2 x day Adjustment to medications: continue current Bedtime snack for BG under 100 Assessment & Plan (05/01/2021 2:12 PM CDT): Hba1c was Lab Results Component Value Date HGBA1C 7.4 05/01/2021 today, indicating suboptimal DM control Goal Hba1c and blood glucose explained Diet and exercise were advised Prevention and treatment of hyypoglcyemia were discussed with the patient Blood glucose monitoring : 2 x day Adjustment to medications: Continue current Will get report of eye exam Assessment & Plan (07/20/2019 9:52 AM CDT): Hba1c was Lab Results Component Value Date HGBA1C 6.6 07/20/2019 today, indicating Adequate DM control 1800 calorie, consistent carb diet recommended. No more than 30-45 grams of carbs per meal recommended, as well as avoiding high concentrated sweet drinks . 25-45 min daily exercise, combining both aerobic and resistance exercise recommended. The need to monitor blood glucose before meals and bedtime was discussed. Prevention and treatment of hyypoglcyemia discussed. Insulin dose: Continue current Continue Synjardy Assessment & Plan (01/05/2019 2:20 PM REIN[employer]CING STEEL [employer]): Hba1c was Lab Results Component Value Date HGBA1C 6.9 % 01/05/2019 today, indicating adequate DM control 1800 calorie, consistent carb diet recommended, no more than 3-45 grams of carbs per meal, avoiding concentrated sweet drinks and rapid absorption carbs. 25-45 min daily aerobic and resistance exercise recommended Prevention and treatment of hyypoglcyemia discussed. Blood glucose monitoring with fingers sticks 1-2 x day Medications: Continue Synjardy /Levemir at current dose Assessment & Plan (09/22/2018 3:02 PM CDT): Hba1c was Lab Results Component Value Date HGBA1C 7.0 09/22/2018 today, indicating adequate DM control 1800 calorie, consistent carb diet recommended 25-45 min daily exercise, combining both aerobic and resistance exercise recommended. The need to monitor blood glucose before meals and bedtime was discussed. Continue Levemir at current dose and Synjardy Prevention and treatment of hyypoglcyemia discussed. Assessment & Plan (06/18/2018 2:36 PM CDT): Your Hba1c today was: Lab Results Component Value Date HGBA1C 8.1 06/18/2018 meaning a 3 month average sugar of : 184 Your goal hba1c is under 7.0 to prevent mcc diabetes complications ( eye , kidney and nerve damage ) . Your goal sugars are in the 90-130 range Exercise recommendations: It is recommended that you do daily aerobic ( walking, riding a bike, swimming ) and resistance exercises ( light weight lifting, resistance band stretching ) for at least 30 minutes , most days of the week. If you can not walk, chair exercises for 10-15 min a day would help tremendously. As little as 15-20 minutes exercise , in one or two sessions a day, is still very helpful to improve your diabetes control . Diet recommendations: Eat small portion meals, trying not to consume more than 1800 calories a day . Try to eat not more than than 2 servings of carbs ( starches ) wiith your meals. Avoid soft drinks, including regular sodas , fruit juices and sweetened tea. Drink water instead. Eat plenty of green and leafy vegetables, including salads. Medications: Take your medications regularly. Setting phone alarms can help . Keep your medication on the kitchen dinner table, by the bedside table or by the sink where they are visible to you. If you are taking insulin : the insulin that you are currently using does not need to be refrigerated. Keep it where you can see it . Monitor your sugar levels with finger sticks regularly and keep a log sheet or book. Bring your sugar meter and /or a log book or log sheet to every office visit. Pay more attention to diet !!! Stop Jardiance. Start Synjardy 25-1000 mg one a day in the morning. Assessment & Plan (02/19/2018 10:17 AM REINFORCING STEEL [employer]ACER): Hba1c was Lab Results Component Value Date HGBA1C 7.5 02/19/2018 today, indicating DM control 1800 calorie, consistent carb diet recommended 25-45 min daily aerobic and resistance exercise recommended Prevention and treatment of hyypoglcyemia discussed. Blood glucose monitoring with fingers sticks 1-2 x day . 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 Your goal sugars are in the 90-130 range Daily aerobic ( walking, riding a bike, swimming ) and resistance exercises ( light weight lifting, resistance band stretching ) for at least 30 minutes is recommended If you can not walk, chair exercises is very acceptable. As little as 15-20 minutes exercise , in one or two sessions a day, is still very helpful and will help to improve your diabetes control . Eat small portion meals, no more than 1800 calories Diet Try to eat not more than than 2-3 servings of carbs ( starches ) wiith your meals. Avoid soft drinks, including regular sodas , fruit juices and sweetened tea. Drink water instead. Eat plenty of green and leafy vegetables, including salads. Take your medications regularly,including your insulin injections. Monitor your sugar levels with finger sticks regularly and keep a log sheet or book. Bring your sugar meter and /or a log book or log sheet to every office visit. Assessment & Plan (02/20/2017 9:36 AM REINFORCING STEEL [employer]ER): Hba1c was 7.0 today, indicating better, adequate DM control 1800 calorie, consistent carb diet recommended 30 min daily aerobic and resistance exercise recommended Prevention and treatment of hyypoglcyemia discussed. Blood glucose monitoring with fingers sticks 1-2 x day . Foot care was discussed. Lower Levemir to 20 u hs Assessment & Plan (12/17/2016 1:50 PM REIN[employer]CING STEEL [employer]ACER): Hba1c was 8.4 today, indicating suboptimal DM control 1800 calorie, consistent carb diet recommended 30 min daily aerobic and resistance exercise recommended Prevention and treatment of hyypoglcyemia discussed. Blood glucose monitoring with fingers sticks 1-2 x day . Foot care was discussed. Add Victoza Hypertension associated with diabetes 12/17/2016 Assessment & Plan (12/19/2022 10:16 AM REINFORCING STEEL PLACER): Chronic problem. Controlled on current metoprolol 25mg bid. No changes at this time. Assessment & Plan (08/29/2022 10:14 AM CDT): Chronic problem. Controlled on current metoprolol 25mg bid. No changes at this time. Assessment & Plan (05/01/2021 2:13 PM CDT): Well controlled Continue current meds Check MA Assessment & Plan (07/20/2019 9:53 AM CDT): Goal blood pressure is less than 140/85 Low salt diet recommended Daily aerobic exercise Continue current meds. Assessment & Plan (01/05/2019 2:21 PM REIN[employer]CING STEEL [employer]): Goal blood pressure is less than 140/85 Low salt diet recommended Daily aerobic exercise Continue current meds, including GEOFF-I or ARB Assessment & Plan (09/22/2018 3:03 PM CDT): Goal blood pressure is less than 140/85 Low salt diet recommended Daily aerobic exercise Assessment & Plan (06/18/2018 2:37 PM CDT): Goal blood pressure is less than 140/85 Low salt diet recommended Daily aerobic exercise Continue current meds, including GEOFF-I or ARB Assessment & Plan (02/19/2018 10:17 AM REIN[employer]ING STEEL [employer]AC[employer]): Goal blood pressure is less than 140/85 Low salt diet recommended Daily aerobic exercise Continue current meds, including GEOFF-I or ARB Assessment & Plan (02/20/2017 9:35 AM REIN[employer]ING STEEL [employer]): Goal blood pressure is less than 140/85 Low salt diet recommended Daily aerobic exercise Check microalbumin , BMP Cerebrovascular accident (CVA) 11/19/2016 Chronic coronary artery disease 11/19/2016 Assessment & Plan (07/15/2017 11:27 AM CDT): Stable On Jardiance also Coronary artery disease invo lving [place] coronary artery of [place] heart without angina pectoris 10/17/2016 Assessment & Plan (12/17/2016 1:50 PM REINFORCING STEEL PLACER): Indication for Jardiance and Victoza Get lipid profile. Resolved Problems Problem Noted Date Diagnosed Date Resolved Date Gross hematuria 02/19/2018 08/28/2022 Mixed hyperlipidemia 02/20/2017 023 Assessment & Plan (02/20/2017 9:36 AM REINFORCING STEEL PLACER): Goal of treatment , LDL cholesterol less than 100 ( less than 70 in patients with history of heart attacks and / or strokes ) NonHDL cholesterol goal less than 130 ( less than 100 in patients with history of heart attacks and / or strokes ) Continue statin therapy S/P coronary artery stent placement 10/17/2016 02/04/2023 Encounters Date Type Department Care Team Description 04/26/2024 11:30 AM CDT Office Visit [facility] [address] [place] [id number] Paul Lopez MD Hx of CABG (Primary Dx); Need for lipid screening from Last 3 Months Immunizations Immunization Administration Dates Next Due Influenza, Trivalent, IM (MDV) 11/15/2016 Surgical History Surgery Date Site/Laterality Comments CORONARY ANGIOPLASTY 02/11/2016 - 03/12/2016 3 HERNIA REPAIR CORONARY ARTERY BYPASS GRAFT 11/26/2016 SINUS ENDOSCOPY 11/01/2021 DRUG INDUCED ENDOSCOPY Medical History Medical History Date Comments Stroke (HCC) 2014 Diabetes type 2, controlled (HCC) Chang's esophagus Cholelithiasis Cirrhosis (HCC) Trigeminal neuralgia Diverticulitis Anemia Sleep apnea Hypertension HLD (hyperlipidemia) CAD (coronary artery disease) Family History Medical History Relation Name Comments Heart failure Brother Cancer Father Cervical cancer Mother Anesthesia problems Neg Hx Relation Name Status Comments Brother (Age 40) Father (Age 92) Mother (Age 74) Social History Tobacco Use Types Packs/Day Years Used Date Smoking Tobacco: Former Cigarettes 2 28.7 1 974 - 10/17/2001 Smokeless Tobacco: Never Tobacco Cessation:Counseling Given: Not Answered Alcohol Use Standard Drinks/Week Comments No 0 (1 standard drink = 0.6 oz pur e alcohol) AUDIT-C Answer Date Recorded Q1: How often do you have a drink containing alc ohol? Monthly or less 12/31/2021 Average Number of Drinks Not on file 022 Q3: How often do you have si x or more drinks on one occasion? Never 12/31/2021 PHQ-2 Answer Date Recorded PHQ-2 Total Score (If total score is 3 or more points, staff should administer the PHQ-9) 0 08/29/2022 Sex and Gender Information Value Date Recorded Sex Assigned at Not on file Legal Sex Male 12:37 AM REINFORCING STEEL [employer] Gender Identity Not on file Sexual Orientation Not on file Obstetrics History Last Filed Vital Signs Vital Sign Reading Time Taken Comments Blood Pressure 128/60 04/26/2024 11:26 AM CDT Pulse 69 04/26/2024 11:26 AM CDT Temperature 36.3 C (97.3 F) 12/11/2023 11:40 AM CDT Respiratory Rate 18 04/24/2023 10:00 AM CDT Oxygen Saturation 96% 04/26/2024 11:26 AM CDT Inhaled Oxygen Concentration - - Weight 95.4 kg (210 lb 6.4 oz) 04/26/2024 11:26 AM CDT Height 172.7 cm (5' 8 ) 04/26/2024 11:26 AM CDT Body Mass Index 31.99 04/26/2024 11:26 AM CDT Plan of Treatment Health Maintenance Due Date Last Done Comments Colon Cancer Screening-Colonoscopy 1955 Hepatitis C Screening 1955 Prostate Cancer Screening-PSA 1955 DTaP/Tdap/Td Vaccine (1 - Tdap) 12/26/1966 Hepatitis B Screening 12/26/1973 Pneumococcal vaccine 65+ (1 of 2 - PCV) 12/26/1974 Zoster Vaccine (1 of 2) 12/26/2005 Abdominal Aortic Aneurysm (A AA) Screen 12/26/2020 Well Visit 65+ 12/26/2020 Fall Risk Assessment 12/31/2022 12/31/2021 Albumin Creatinine Ratio, Urine 05/10/2023 , 05/01/2021 Foot Exam 05/10/2023 05/09/2022, 04/11, 07/20/2019, Additional history exists eGFR 05/10/2023 05/09/2022, 11/11, 12/01/2016, Additional history exists Depression Screening 08/30/2023 08/29/2022, 11/08/2021, 07/20/2019, Additional history exists Covid-19 Vaccine (2023-2 5 season) 2023 12/13/2020, 05/15/2020, 04/17/2020 Hemoglobin A1C 10/25/2023 04/24/2023, 10/2022, 08/29/2022, Additional history exists Dilated Eye Exam 02/28/2024 02/27/2023, , 02/12/2021, Additional history exists Influenza Vaccine (Season Ended) 2024 10/17/2020, 10/20/2019, 11/19/2018, Additional history exists Lipid Panel 04/26/2025 04/26/2024, 07/12, 05/09/2022, Additional history exists Colon Cancer Screening-FIT Discontinued 09/24/2018 Medical Devices Implanted Type Area Roofing Laborer Device Identifier Shelf Expiration Date Model / Serial / Lot Stent-02/13/2016 Implanted:Qty: 3 on 02/13/2016 Stent N/A: Heart [employer] Inspire 3 Electrode Cuff Tunnel Marc Lead Neurostimulator Sterile 4063 - [id number] - [id number] Implanted:Qty: 1 on 12/31/2021 by Clint Luis MD at [facility] Right: Neck [employer] [id number] 05/01/2023 4063 / [id number] / [employer] Lead Neurostimulator Inspire Respiratory Sens Cycle Strl Lf 4340 - [id number] - [id number] Implanted:Qty: 1 on 12/31/2021 by Clint Luis MD at [facility] [employer] 05/15/2023 4340 / [id number] / [employer] Inspire Generator 3028 - [id number] - [id number] Implanted:Qty: 1 on 12/31/2021 by Clint Luis MD at [facility] [employer] 05/04/2024 3028 / [id number] / Procedures Procedure Name Priority Date/Time Associated Diagnosis Comments POCT LIPID PANEL Routine 04/26/2024 3:20 PM CDT Need for lipid screening POCT HEMOGLOBIN A1C Routine 04/24/2023 9 :59 AM CDT Type 2 diabetes mellitus with hyperglycemia, with long-term current use of insulin (HCC) HM DIABETES EYE EXAM Routine 02/27/2023 7:49 AM REINFORCING STEEL PLACER EGFR Routine 05/09/2022 11:54 AM CDT Type 2 diabetes mellitus with hyperglycemia, with long-term current use of insulin (HCC) ALBUMIN CREATININE RATIO, URINE Routine 05/09/2022 11:54 AM CDT Type 2 diabetes mellitus with hyperglycemia, with long-term current use of insulin (HCC) OCCULT BLOOD, FECAL (FIT) Routine 09/24/2018 11:00 AM CDT from Last 3 Months or Most Recently Relevant to Health Maintenance Results * POCT lipid panel (04/26/2024 3:20 PM CDT) Cholesterol, POC 116 mg/dL Comment:GLU = 209 HDL, POC <15 mg/dL Triglycerides, POC 175 mg/dL LDL Cholesterol POC 66 mg/dL Chol/HDL Ratio, POC N/A Non-HDL Cholesterol, POC N/A mg/dL Cholesterol Total, POC 116 mg/dL Capillary blood 04/26/2024 3 :20 PM CDT Paul Lopez MD POINT OF CARE TEST ORDER MADONNA Final Result * (ABNORMAL) POCT hemoglobin A1c (04/24/2023 9:59 AM CDT) Hemoglobin A1C, POC 7.1 % Blood spot 04/24/2023 9:59 AM CDT Result [facility] Patrick Katz MD POINT OF CARE TEST ORDERABLES Fi nal Result * HM DIABETES EYE EXAM (02/27/2023 7:49 AM REINFORCING STEEL PLACER) Rei Rojo MD HEALTH MAINTENANCE Final Result * eGFR (05/09/2022 11:54 AM CDT) eGFR 101 mL/min/1. 73 m2 MARYLOU JIN Comment: Interpretive Data Reference Interval Normal >/= 90 mL/min/1.73m2 Mildly decreased* 60 - 89 mL/min/1.73m2 Mildly to moderately decreased 45 - 59 mL/min/1.73m2 Moderately to severely decreased 30 - 44 mL/min/1.73m2 Severely decreased 15 - 29 mL/min/1.73m2 Kidney Failure < 15 mL/min/1.73m2 *Relative to young adult level Estimated glomerular filtration rate is determined by the 2020 CKD-EPI equation recommended by the National Kidney Foundation (A Unifying Approach to GFR Estimation: Recommendations of the NKF-ASK Task Force on Reassessing the Inclusion of Race in Diagnosing Kidney Disease, JASN 2020). The CKD-EPI equation should not be used for patients with unstable renal function and has not been validated in children and those over 70. Current interpretive data was last reviewed 2020. Blood 05/09/2022 11:5 4 AM CDT 05/09/2022 8:18 PM CDT Result [facility] Patrick Katz MD LAB BLOOD ORDERABLES Final Resul t MARYLOU JIN [id number] Department [place] [address] * Albumin Creatinine Ratio, Urine (05/09/2022 11:54 AM CDT) Albumin Ur 16.2 mg/L MARYLOU Comment: Interpretive Data No reference range established. Current interpretive data was last revised 2018. Creatinine Ur 62.5 mg/dL [facility] Comment: Interpretive Data No reference range established. Current interpretive data was last revised 2018. Albumin Creatinine Ratio, Ur 26 1 - 29 mg/g MARYLOU Urine 05/09/2022 11:5 4 AM CDT 05/09/2022 6:52 PM CDT Patrick Katz MD LAB URINE ORDERABLES Final Resul t Performing Organization Address City/[facility] Co de Phone Number NAVAL [facility] [address] Department [place] [address] * Occult Blood FIT, Fecal (09/24/2018 11:00 AM CDT) Fecal globulin by immunochemistry SEE NOTE [facility] - [place] Comment: FECAL GLOBIN BY IMMUNOCHEMISTRY MICRO NUMBER: [id number] TEST STATUS: FINAL SPECIMEN SOURCE: INSURE (TM) FOBT TEST CARD SPECIMEN QUALITY: ADEQUATE RESULT: Not Detected 09/24/2018 11:0 0 AM CDT 09/24/2018 11:02 AM CDT Narrative Resulting Agency Comment Performing Organization Information: Site ID: [place] Name: [facility] [employer] Address: [address] [address] Director: Kentrell Gonzales D.O., MPH Patrick Katz MD LAB BODY FLUIDS AND STOOLS ORDER MADONNA Final Result LORENA CARRILLO [place] Yanez from Last 3 Months or Most Recently Relevant to Health Maintenance Insurance MEDICARE [facility] INSURANCE MEDICARE [facility] INSURANCE MEDICARE COMMERCIAL GENERIC Care Teams Newspaper Photo Editor Relationship Specialty Start Date End Date Brigido Bynum MD [address] [facility] [address] [place] [address] PCP - General Family Medicine 10/17/16
--- OUTSIDE RECORDS SUMMARY | 2024-06-30 10:31 | XMS_ITS | Clinical Summary ---
Author Organization [facility] [employer] Address [address] [facility] [place] [address] Care Team Providers Care Engineering Psychologist Name Role Phone Steven Chavez MD Unavailable [phone] Brigido Bynum MD Primary Care Provider [phone] Source Comments [facility] [employer],non-owned Affiliates and Associated Physician Practices is amultiple site organization consisting of ambulatory clinics and hospital sitesin [place], [place], [place] and [place]. This disclosure is being madepursuant to the Care Everywhere program and may not contain all information available regarding this patient. Last updated 17.[facility] [employer] Allergies No known active allergies Medications * Be aware that medications may not be up to date on this document. Alwaysverify current medications with the patient. metFORMIN (GLUCOPHAGE) 500 MG tablet Take 2,000 mg by mouth daily before dinner. Active PARoxetine (PAXIL) 20 MG tablet Take 20 mg by mouth daily. Active pantoprazole EC (PROTONIX) 40 MG tablet Take 40 mg by mouth 2 times daily Active metoprolol tartrate (LOPRESSOR) 25 MG tablet Take 25 mg by mouth 2 times daily Active Melatonin 10 MG Take 10 mg by mouth once daily Active meclizine (ANTIVERT) 25 MG tablet Take 25 mg by mouth 3 times daily 1 Active OneTouch Delica Lancets 33G MISC USE TO TEST BLOOD SUGARS 4 TIMES A DAY 1 Active NOVOFINE 32G X 6 MM MISC USE ONCE DAILY DIRECTED 1 Active insulin pen needle (NOVOFINE) 32G X 6 MM MISC USE ONCE DAILY DIRECTED 1 Active insulin detemir (LEVEMIR FLEXTOUCH) pen Inject 30 Units subcutaneously once daily 0 Active ONETOUCH ULTRA test strip TEST BLOOD SUGAR 2 4 TIMES DAILY. 1 Active gabapentin (NEURONTIN) 600 MG tablet Take 600 mg by mouth 2 times daily 1 Active finasteride (PROSCAR) 5 MG tablet Take 5 mg by mouth once daily 1 Active ferrous sulfate EC (FERROUS SULFATE) 324 (65 Fe) MG tablet Take 1 tablet by mouth 2 times daily 1 Active clonazePAM (KLONOPIN) 0.5 MG tablet TAKE 1 TABLET BY MOUTH EVERYDAY AT BEDTIME 1 Active atorvastatin (LIPITOR) 40 MG tablet Take 40 mg by mouth once daily 1 Active ASPIRIN LOW DOSE 81 MG tablet Take 81 mg by mouth once daily 0 Active empaglifozin-m etFORMIN ER 24hr (SYNJARDY XR) 10-1000 MG tablet Take 1 tablet by mouth once daily Active sildenafil (VIAGRA) 100 MG tablet Take 1 (one) tablet by mouth once as needed 6 tablet 5 1 Active Active Problems Problem Noted Date Diagnosed Date Stroke 08/24/2010 Trigeminal neuralgia 08/24/2010 Family History Medical History Relation Name Comments Cancer Father Diabetes Father High Blood Pressure Father Cancer Mother Diabetes Other 1 SIBLING Cancer Other 2 SIBLING Relation Name Status Comments Father Mother Other 1 Other 2 Social History Tobacco Use Types Packs/Day Years Used Date Smoking Tobacco: Former Smokeless Tobacco: Never Alcohol Use Standard Drinks/Week Comments No 0 (1 standard drink = 0.6 oz pur e alcohol) Sex and Gender Information Value Date Recorded Sex Assigned at Not on file Legal Sex Male 11:59 AM PORTER MARINA Gender Identity Not on file Sexual Orientation Not on file Last Filed Vital Signs Vital Sign Reading Time Taken Comments Blood Pressure 135/53 09/26/2020 8:19 AM CDT Pulse 61 09/26/2020 8:19 AM CDT Temperature 36.2 C (97.2 F) 09/12/2020 7:55 AM CDT Respiratory Rate 16 08/02/2014 8:14 AM CDT Oxygen Saturation 98% 09/26/2020 8:19 AM CDT Inhaled Oxygen Concentration - - Weight 103.4 kg (228 lb) 09/26/2020 8:19 AM CDT Height 172.7 cm (5' 8 ) 09/26/2020 8:19 AM CDT Body Mass Index 34.67 09/26/2020 8:19 AM CDT Plan of Treatment Health Maintenance Due Date Last Done Comments COLOGUARD (AGES 45-75) - COLON CA SCREENING 1955 COLON MONITORING 1955 COLONOSCOPY - COLON CA SCREENING 1955 CT COLONOGRAPHY - COLON CA SCREENING 1955 Colorectal Cancer Screening 1955 FIT - COLON CA SCREENING 1955 FLEX SIG - COLON CA SCREENING 1955 DTAP/TDAP/TD VACCINES (1 - Tdap) 12/26/1974 PNEUMOCOCCAL VACCINE 50+ (1 of 1 - PCV) 12/26/2005 ZOSTER VACCINE (1 of 2) 12/26/2005 SCREENING FOR DIABETES 09/12/2020 5, 11/16/2013, 07/27/2013, Additional history exists AAA SCREENING 12/26/2020 COVID-19 VACCINE ( - season) 2023 DEPRESSION SCREENING 02/11/2024 INFLUENZA VACCINE (Season Ended) 2024 11/15/2016 Respiratory Syncytial Virus (RSV) Vaccine Pt: or over 60 yrs (1 - 1-dose 75+ series) 12/26/2030 HEPATITIS C SCREENING Completed 08/24/2010 HEPATITIS B VACCINE Aged Out No longe r eligible based on patient's age to complete this topic HIB VACCINE Aged Out No longer eligi ble based on patient's age to complete this topic HPV VACCINE Aged Out No longer eligi ble based on patient's age to complete this topic MENINGOCOCCAL (Group B) VACCINE SHARED DECISION-MAKING Aged Out No longer eligible based on patient's age to complete this topic MENINGOCOCCAL GROUPS A/C/Y/W VACCINE Aged Out No longer eligible based on patient's age to complete this topic Procedures Procedure Name Priority Date/Time Associated Diagnosis Comments COMPREHENSIVE METABOLIC PANEL Routine 08/02/2014 9:19 AM CDT HEPATITIS SCREEN ACUTE 1 1:00 PM CDT from Last 3 Months or Most Recently Relevant to Health Maintenance Results * (ABNORMAL) COMPREHENSIVE METABOLIC PANEL (08/02/2014 9:19 AM CDT) BUN 16 7 - 26 mg/dL [facility] Creatinine 0.7 0.6 - 1.2 mg/dL [facility] Sodium 140 136 - 145 mmol/L [facility] Potassium 4.3 3.5 - 4.5 mmol/L [facility] Chloride 102 98 - 107 mmol/L [facility] CO2 31(H) 22 - 29 mmol/L [facility] Glucose 112 70 - 115 mg/dL [facility] Calcium 9.7 8.4 - 10.2 mg/dL [facility] Protein Total 7.8 6.0 - 8.3 g/dL [facility] Albumin 4.1 3.4 - 5.0 g/dL [facility] Bilirubin Total 1.0 0.2 - 1.2 mg/dL [facility] Alkaline Phosphatase 83 40 - 150 Units/L [facility] ALT 27 0 - 55 Units/L [facility] AST 21 5 - 34 Units/L [facility] Anion Gap 11 8 - 18 [facility] BUN/Creatinine Ratio 23 7 - 23 [facility] Osmolality Calculated 277 270 - 300 mOsm/kg [facility] Albumin/Globulin Ratio 1.1 1.1 - 2.3 [facility] eGFR >60 >60 mL/min/1.7 3 m2 [facility] Blood specimen (specimen) BLOOD SPECIMEN / Unknown 08/02/2014 9:19 AM CDT 08/02/2014 9:30 AM CDT us Deniz Bañuelos MD LAB - CHEMISTRY ORDERABLES [facility] Result [address] [phone] * HEPATITIS SCREEN ACUTE (08/24/2010 1:00 PM CDT) Hepatitis A Virus Antibody IgM Negative Negative [facility] INSURANCE BILL Hepatitis B Virus Surface Antigen Negative Negative [facility] INSURANCE BILL Hepatitis B Core Virus Antibody IgM Negative Negative [facility] INSURANCE BILL Hepatitis C Virus Antibody <0.1 0.0 - 0.9 s/co ratio [facility] INSURANCE BILL Comment: Negative: < 0.8 Indeterminate 0.8 - 0.9 Positive: > 0.9 . In order to reduce the incidence of a false positive result, the CDC recommends that all s/co ratios between 1.0 and 10.9 be confirmed with additional RIBA or PCR testing. 08/24/2010 1:00 PM CDT 08/24/2010 3:37 PM CDT Narrative [facility] INSURANCE BILL - 08/29/2010 8:44 AM CDT A courtesy copy of this report has been sent to [facility]. Resulting Agency Comment [facility] [address] [facility] [id number] us Steven Chavez MD LAB - CHEMISTRY ORDERABLES Final Result [facility] INSURANCE BILL [address] [place] [address] from Last 3 Months or Most Recently Relevant to Health Maintenance Insurance AET AET Advance Directives * Full Code (Latest Code Status on File) Date Activated Date Inactivated Comments 07/13/2010 12:28 AM 07/14/2010 9:12 PM * Full Code Date Activated Date Inactivated Comments 07/12/2010 9:59 PM 07/13/2010 12:28 AM Care Teams Engineering Psychologist Relationship Specialty Start Date End Date Brigido Bynum MD [address] [place] [address] PCP - General 11/20/18 Steven Chavez MD Neurology 08/24/10
--- OUTSIDE RECORDS SUMMARY | 2024-06-30 10:31 | XMS_ITS | Encounter Summary ---
Author Organization [facility] Address [address] [place] [address] Phone Care Team Providers Care Mounter Sousaphones Name Role Phone Brigido Bynum MD Primary Care Provider Encounter Details Date Type Department Care Team (Latest Contact Info) Description 10/23/2021 Orders Only [facility] SLEEP Scanning, Provider Social History Tobacco Use Types Packs/Day Years Used Date Smoking Tobacco: Former Cigarettes 2 28.7 1 974 - 10/17/2001 Smokeless Tobacco: Never Alcohol Use Standard Drinks/Week Comments No 0 (1 standard drink = 0.6 oz pur e alcohol) AUDIT-C Answer Date Recorded Frequency of Alcohol Consumption Not on file 10/19/2021 Q2: How many drinks containi ng alcohol do you have on a typical day when you are drinking? Patient does not drink Frequency of Binge Drinking Not on file 10/2021 PHQ-2 Answer Date Recorded PHQ-2 Total Score (If total score is 3 or more points, staff should administer the PHQ-9) 0 07/20/2019 Sex and Gender Information Value Date Recorded Sex Assigned at Not on file Legal Sex Male 12:37 AM DIRECTOR TOXICOLOGY Gender Identity Not on file Sexual Orientation Not on file documented as of this encounter Plan of Treatment Not on file documented as of this encounter Procedures Procedure Name Priority Date/Time Associated Diagnosis Comments SLEEP LAB/STUDY - RESULT 10/23/2021 5:11 PM CDT documented in this encounter Results * SLEEP LAB/STUDY - RESULT (10/23/2021 5:11 PM CDT) us Provider Scanning Final Result documented in this encounter Visit Diagnoses Not on filedocumented in this encounter Care Teams Mounter Sousaphones Relationship Specialty Start Date End Date Brigido Bynum MD [address] [facility] [address] [place] [address] PCP - General Family Medicine 10/17/16 documented as of this encounter
--- OUTSIDE RECORDS SUMMARY | 2024-06-30 10:31 | XMS_ITS | Referral Summary ---
Author Organization [facility] Address [address] [place] [address] Care Team Providers Care Box Toe Buffer Name Role Phone Brigido Bynum MD Primary Care Provider Encounters Date Type Department Care Team Description 04/26/2024 11:30 AM CDT Office Visit [facility] [address] [place] [address] Paul Lopez MD Hx of CABG (Primary Dx); Need for lipid screening from Last 3 Months Allergies No known active allergies Medications atorvastatin [...] mg tablet Take 5-1,000 mg by mouth machine filler before breakfast 90 tablet 3 2 Active OneTouch Ultra Test strip TEST BLOOD SUGAR 2-4 [...] Atorvastatin Assessment & Plan (12/19/2022 10:17 AM DYE PADDER OPERATOR): Chronic problem. Controlled on current Atorvastatin 40mg. Last lipid panel: 05/09/22 LDL=71, OQ=720. No changes at this time. Assessment & Plan (08/29/2022 10:15 AM CDT): Chronic problem. Controlled on current Atorvastatin 40mg. Last lipid panel: 05/09/22 LDL=71, GA=191. No changes at this time. Assessment & [...] today Assessment & Plan (01/05/2019 2:21 PM DYE PADDER OPERATOR): Goal of treatment , LDL cholesterol less [...] therapy Assessment & Plan (02/19/2018 10:17 AM DYE PADDER OPERATOR): Goal of treatment , LDL cholesterol less [...] to continue working on diet and exercise Cotinue Basaglar and Synjardy. Assessment & Plan (12/19/2022 10:33 AM DYE PADDER OPERATOR): Chronic problem. Near goal, jamee from A1c [...] Synjardy Assessment & Plan (01/05/2019 2:20 PM DYE PADDER OPERATOR): Hba1c was Lab Results Component Value Date [...] goal hba1c is under 7.0 to prevent terminal carman diabetes complications ( eye , kidney and [...] morning. Assessment & Plan (02/19/2018 10:17 AM DYE PADDER OPERATOR): Hba1c was Lab Results Component Value Date [...] goal hba1c is under 7.0 to prevent shelter diabetes complications ( eye , kidney and [...] visit. Assessment & Plan (02/20/2017 9:36 AM DYE PADDER OPERATOR): Hba1c was 7.0 today, indicating better, adequate DM control 1800 calorie, consistent carb diet recommended 30 min daily aerobic and resistance exercise recommended Prevention and treatment of hyypoglcyemia discussed. Blood glucose monitoring with fingers sticks 1-2 x day . Foot care was discussed. Lower Levemir to 20 u hs Assessment & Plan (12/17/2016 1:50 PM DYE PADDER OPERATOR): Hba1c was 8.4 today, indicating suboptimal DM control 1800 calorie, consistent carb diet recommended 30 min daily aerobic and resistance exercise recommended Prevention and treatment of hyypoglcyemia discussed. Blood glucose monitoring with fingers sticks 1-2 x day . Foot care was discussed. Add Victoza Hypertension associated with diabetes 12/17/2016 Assessment & Plan (12/19/2022 10:16 AM DYE PADDER OPERATOR): Chronic problem. Controlled on current metoprolol 25mg [...] meds. Assessment & Plan (01/05/2019 2:21 PM DYE PADDER OPERATOR): Goal blood pressure is less than 140/85 [...] ARB Assessment & Plan (02/19/2018 10:17 AM DYE PADDER OPERATOR): Goal blood pressure is less than 140/85 Low salt diet recommended Daily aerobic exercise Continue current meds, including GEOFF-I or ARB Assessment & Plan (02/20/2017 9:35 AM DYE PADDER OPERATOR): Goal blood pressure is less than 140/85 Low salt diet recommended Daily aerobic exercise Check microalbumin , BMP Cerebrovascular accident (CVA) 11/19/2016 Chronic coronary artery disease 11/19/2016 Assessment & Plan (07/15/2017 11:27 AM CDT): Stable On Jardiance also Coronary artery disease invo lving qawalangin coronary artery of qawalangin heart without angina pectoris 10/17/2016 Assessment & Plan (12/17/2016 1:50 PM DYE PADDER OPERATOR): Indication for Jardiance and Victoza Get lipid profile. Resolved Problems Problem Noted Date Diagnosed Date Resolved Date Gross hematuria 02/19/2018 08/28/2022 Mixed hyperlipidemia 02/20/2017 023 Assessment & Plan (02/20/2017 9:36 AM DYE PADDER OPERATOR): Goal of treatment , LDL cholesterol less than 100 ( less than 70 in patients with history of heart attacks and / or strokes ) NonHDL cholesterol goal less than 130 ( less than 100 in patients with history of heart attacks and / or strokes ) Continue statin therapy S/P coronary artery stent placement 10/17/2016 02/04/2023 Immunizations Immunization Administration Dates Next Due Influenza, Trivalent, IM (MDV) 11/15/2016 Social History Tobacco Use Types Packs/Day Years [...] on file Legal Sex Male 12:37 AM DYE PADDER OPERATOR Gender Identity Not on file Sexual Orientation [...] 04/26/2024 11:26 AM CDT Plan of Treatment Not on file Medical Devices Implanted Type Area Reject Opener And Filler Device Identifier Shelf Expiration Date Model / Serial / Lot Stent-02/13/2016 Implanted:Qty: 3 on 02/13/2016 Stent N/A: Heart [employer] Inspire 3 Electrode Cuff Tunnel Marc Lead Neurostimulator Sterile 4063 - [id number] - [id number] Implanted:Qty: 1 on 12/31/2021 by Clint Luis MD at [facility] Right: Neck [employer] [id number] 05/01/2023 4063 / [id number] / [employer] Lead Neurostimulator Inspire Respiratory Sens Cycle Strl Lf 4340 - [id number] - [id number] Implanted:Qty: 1 on 12/31/2021 by Clint Luis MD at [facility] [employer] 05/15/2023 4340 / [id number] / [employer] Inspire Generator 3028 - [id number] - [id number] Implanted:Qty: 1 on 12/31/2021 by Clint Luis MD at [facility] 05/04/2024 3028 / [id number] 1C / Procedures Procedure Name Priority Date/Time Associated Diagnosis Comments POCT LIPID PANEL Routine 04/26/2024 3:20 PM CDT Need for lipid screening POCT HEMOGLOBIN A1C Routine 04/24/2023 9 :59 AM CDT Type 2 diabetes mellitus with hyperglycemia, with long-term current use of insulin (HCC) HM DIABETES EYE EXAM Routine 02/27/2023 7:49 AM DYE PADDER OPERATOR EGFR Routine 05/09/2022 11:54 AM CDT Type [...] Total, POC 116 mg/dL Capillary blood 04/26/2024 3:20 PM CDT Paul Lopez MD POINT OF CARE TEST ORDER MADONNA Final Result * (ABNORMAL) POCT hemoglobin A1c (04/24/2023 9:59 AM CDT) Hemoglobin A1C, POC 7.1 % Blood spot 04/24/2023 9:59 AM CDT us Patrick Katz MD POINT OF CARE TEST ORDERABLES Fi nal Result * HM DIABETES EYE EXAM (02/27/2023 7:49 AM DYE PADDER OPERATOR) Rei Rojo MD HEALTH MAINTENANCE Final Result [...] AM CDT 05/09/2022 8:18 PM CDT Result [facility] Patrick Katz MD LAB BLOOD ORDERABLES Final Resul t MARYLOU JIN [address] Department [place] [address] * Albumin Creatinine Ratio, Urine (05/09/2022 11:54 AM CDT) Albumin Ur 16.2 mg/L [facility] Comment: Interpretive Data No reference range established. Current interpretive data was last revised 2018. Creatinine Ur 62.5 mg/dL [facility] Comment: Interpretive Data No reference range established. Current interpretive data was last revised 2018. Albumin Creatinine Ratio, Ur 26 1 - 29 mg/g MARYLOU Urine 05/09/2022 11:5 4 AM CDT 05/09/2022 6:52 PM CDT Patrick Katz MD LAB URINE ORDERABLES Final Resul t Performing Organization Address [facility] Co de Phone Number MARYLOU [address] [place] [address] * Occult Blood FIT, Fecal (09/24/2018 11:00 AM CDT) Fecal globulin by immunochemistry SEE NOTE [facility] [place] Comment: FECAL GLOBIN BY IMMUNOCHEMISTRY MICRO NUMBER: [id number] TEST STATUS: FINAL SPECIMEN SOURCE: INSURE () FOBT TEST CARD SPECIMEN QUALITY: ADEQUATE RESULT: Not Detected 09/24/2018 11:0 0 AM CDT 09/24/2018 11:02 AM CDT Narrative Resulting Agency Comment Performing Organization Information: Site ID: [place] Name: [employer] Address: [address] [place] [address] [place] [id number] Director: Kentrell Gonzales D.O., MPH Patrick Katz MD LAB BODY FLUIDS AND STOOLS ORDER MADONNA Final Result Performing Organization Address [facility] de Phone Number LORENA CARRILLO [employer] [place] from Last 3 Months or Most Recently Relevant to Health Maintenance Insurance MEDICARE [facility] INSURANCE MEDICARE [facility] INSURANCE MEDICARE COMMERCIAL GENERIC Care Teams Box Toe Buffer Relationship Specialty Start Date End Date Brigido Bynum MD [address] [facility] [address] [place] [address] PCP - General Family Medicine 10/17/16
[2024-06-30 10:38] LABS: Alanine Aminotransferase 44 U/L (6-50); Albumin Level 4.5 g/dL (3.5-5.1); Alkaline Phosphatase 74 U/L (38-126); Anion Gap 8 mmol/L (4-12); Aspartate Amino Transferase 37 U/L (17-59); Bilirubin,Total 1.1 mg/dL (0.2-1.3); Blood Urea Nitrogen 21 mg/dL (9-20); Calcium 8.9 mg/dL (8.4-10.2); Carbon Dioxide 29 mmol/L (22-30); Chloride 103 mmol/L (98-107); Cholesterol 132 mg/dL (0-200); Estimated Glomerular Filt Rate > 60; Glucose 117 mg/dL (65-110); HDL Direct 40 mg/dL; Potassium 4.2 mmol/L (3.4-5.0); Sodium 140 mmol/L (137-145); Triglycerides 87 mg/dL (<150)
[2024-06-30 10:49] LABS: Hemoglobin A1C 7.1 % (<5.7); LDL Cholesterol Direct 62 mg/dL
[2024-06-30 10:54] LABS: Creatinine Urine 113.7 mg/dL
[2024-06-30 10:58] LABS: MALB Creatinine Ratio 17.8 mg/g (0-30); Microalbumin Urine Random 20.2 mg/L (0-16.7)
== END 2024-06-30 09:54 | disposition home or self-care (01) ==
PROVIDERS: PCP Family Medicine; Visit Provider Family Medicine
DX: I11.9 Hypertensive heart disease without heart failure (principal); R35.1 Nocturia; I25.10 Atherosclerotic heart disease of native coronary artery without angina pectoris; E11.9 Type 2 diabetes mellitus without complications; E78.5 Hyperlipidemia, unspecified
CPT/HCPCS: 36415; 80053; 80061; 81001; 82043; 83036; 84443; 85027

== ENCOUNTER 2024-09-24 08:49 | Emergency (ER) | payer MEDICARE, SELFPAY ==
--- NOTE | ~2024-09-24 | CT_ITS ---
EXAMINATION: CTA brain carotid DATE: 09/24/2024 10:42 CDT INDICATION: Double vision. Right head pressure TECHNIQUE: Computed tomographic angiography (CTA) of the head was performed without andwith intraveno us contrast. CTA of the neck was performed with intravenous contrast. The dose-length product was 172 1.78 mGy-cm. Maximum intensity projection and volume rendered 3D-reconstructions were created by the technologist on a separate workstation. COMPARISON: CT head 12/26/2020 FINDINGS: HEAD CT NONCONTRAST: No acute intracranial hemorrhage. No mass effect. No midline shift. No hydrocephalus. Partial opacifi cation of the paranasal sinuses. Partial opacification of the mastoid air cells. No skull fracture id entified. There are metallic densities about the right side of the tongue. Correlate clinically. HEAD CTA: The bilateral anterior cerebral arteries, middle cerebral arteries and posterior cerebral arteries ar e patent. Basilar artery is patent. Visualized vertebral arteries are patent. Small amount of calcifi ed plaque in the cavernous segments of the bilateral internal carotid arteries causing less than 10% stenosis. Right vertebral artery is smaller than the left vertebral artery. Small calcified plaque in the proxi mal right vertebral artery causing less than 10% stenosis. The left anterior cerebral artery originat es from the A1 segment of the left anterior cerebral artery. No visualized A1 segment of the right an terior cerebral artery. Visualized venous sinuses are grossly patent. Dental hardware is present with surrounding artifact which slightly limits evaluation. NECK CTA: Small opacities in the upper lobes. Moderate amount of calcified plaque in the left carotid bulb causing 30% stenosis. Origin of the left common carotid artery is widely patent. Origin of the right common carotid artery is widely patent. Small amount of plaque in the right carot id bulb causing less than 10% stenosis. Vertebral arteries are widely patent. Origins of the vertebral arteries demonstrate a small amount of calcified plaque causing less than 20% stenosis. IMPRESSION: 1. No acute intracranial hemorrhage. No mass effect. 2.The left anterior cerebral artery originates from the A1 segment of the left anterior cerebral kamran ry. No visualized A1 segment of the right anterior cerebral artery. 3.Small amount of calcified plaque in the cavernous segments of the bilateral internal carotid arteri es causing less than 10% stenosis. 4.Moderate amount of calcified plaque in the left carotid bulb causing 30% stenosis. 5.Small amount of plaque in the right carotid bulb causing less than 10% stenosis. 6.Origins of the vertebral arteries demonstrate a small amount of calcified plaque causing less than 20% stenosis. If symptoms persist or worsen, consider an MRI of the brain with and without contrast for further ass essment. Reviewed, dictated and finalized at location A. IMPRESSION: 1. No acute intracranial hemorrhage. No mass effect. 2.The left anterior cerebral artery originates from the A1 segment of the left anterior cerebral artery. No visualized A1 segment of the right anterior cerebr al artery. 3.Small amount of calcified plaque in the cavernous segments of the bilateral i nternal carotid arteries causing less than 10% stenosis. 4.Moderate amount of calcified plaque in the left carotid bulb causing 30% sten osis. 5.Small amount of plaque in the right carotid bulb causing less than 10% stenos is. 6.Origins of the vertebral arteries demonstrate a small amount of calcified gabriel que causing less than 20% stenosis. If symptoms persist or worsen, consider an MRI of the brain with and without co ntrast for further assessment.
--- OUTSIDE RECORDS SUMMARY | 2024-09-24 08:52 | XMS_ITS | Clinical Summary ---
Author Organization [facility] Address [address] [place] [address] Care Team Providers Care Force Dispatcher Name Role Phone Brigido Bynum MD Primary [...] mg tablet Take 5-1,000 mg by mouth dry sander before breakfast 90 tablet 3 2 Active Harvard UniversityTouch Ultra Test strip TEST BLOOD SUGAR 2-4 [...] Atorvastatin Assessment & Plan (12/19/2022 10:17 AM LEACH TANK TENDER): Chronic problem. Controlled on current Atorvastatin 40mg. Last lipid panel: 05/09/22 LDL=71, DW=869. No changes at this time. Assessment & Plan (08/29/2022 10:15 AM CDT): Chronic problem. Controlled on current Atorvastatin 40mg. Last lipid panel: 05/09/22 LDL=71, RY=824. No changes at this time. Assessment & [...] today Assessment & Plan (01/05/2019 2:21 PM LEACH TANK TENDER): Goal of treatment , LDL cholesterol less [...] therapy Assessment & Plan (02/19/2018 10:17 AM LEACH TANK TENDER): Goal of treatment , LDL cholesterol less [...] Synjardy. Assessment & Plan (12/19/2022 10:33 AM LEACH TANK TENDER): Chronic problem. Near goal, jamee from A1c [...] Synjardy Assessment & Plan (01/05/2019 2:20 PM LEACH TANK TENDER): Hba1c was Lab Results Component Value Date [...] goal hba1c is under 7.0 to prevent longterm diabetes complications ( eye , kidney and [...] morning. Assessment & Plan (02/19/2018 10:17 AM LEACH TANK TENDER): Hba1c was Lab Results Component Value Date [...] goal hba1c is under 7.0 to prevent ferry terminal supervisor diabetes complications ( eye , kidney and [...] visit. Assessment & Plan (02/20/2017 9:36 AM LEACH TANK TENDER): Hba1c was 7.0 today, indicating better, adequate DM control 1800 calorie, consistent carb diet recommended 30 min daily aerobic and resistance exercise recommended Prevention and treatment of hyypoglcyemia discussed. Blood glucose monitoring with fingers sticks 1-2 x day . Foot care was discussed. Lower Levemir to 20 u hs Assessment & Plan (12/17/2016 1:50 PM LEACH TANK TENDER): Hba1c was 8.4 today, indicating suboptimal DM control 1800 calorie, consistent carb diet recommended 30 min daily aerobic and resistance exercise recommended Prevention and treatment of hyypoglcyemia discussed. Blood glucose monitoring with fingers sticks 1-2 x day . Foot care was discussed. Add Victoza Hypertension associated with diabetes 12/17/2016 Assessment & Plan (12/19/2022 10:16 AM LEACH TANK TENDER): Chronic problem. Controlled on current metoprolol 25mg [...] meds. Assessment & Plan (01/05/2019 2:21 PM LEACH TANK TENDER): Goal blood pressure is less than 140/85 [...] ARB Assessment & Plan (02/19/2018 10:17 AM LEACH TANK TENDER): Goal blood pressure is less than 140/85 Low salt diet recommended Daily aerobic exercise Continue current meds, including GEOFF-I or ARB Assessment & Plan (02/20/2017 9:35 AM LEACH TANK TENDER): Goal blood pressure is less than 140/85 Low salt diet recommended Daily aerobic exercise Check microalbumin , BMP Cerebrovascular accident (CVA) 11/19/2016 Chronic coronary artery disease 11/19/2016 Assessment & Plan (07/15/2017 11:27 AM CDT): Stable On Jardiance also Coronary artery disease invo lving [place] coronary artery of [place] heart without angina pectoris 10/17/2016 Assessment & Plan (12/17/2016 1:50 PM LEACH TANK TENDER): Indication for Jardiance and Victoza Get lipid profile. Resolved Problems Problem Noted Date Diagnosed Date Resolved Date Gross hematuria 02/19/2018 08/28/2022 Mixed hyperlipidemia 02/20/2017 023 Assessment & Plan (02/20/2017 9:36 AM LEACH TANK TENDER): Goal of treatment , LDL cholesterol less [...] History Medical History Date Comments Stroke (HCC) 2015 Diabetes type 2, controlled Chang's esophagus Cholelithiasis Cirrhosis (HCC) Trigeminal neuralgia [...] on file Legal Sex Male 12:37 AM LEACH TANK TENDER Gender Identity Not on file Sexual Orientation [...] 11:26 AM CDT Height 172.7 cm (5' 8) 04/26/2024 11:26 AM CDT Body Mass Index [...] 12/31/2022 12/31/2021 Albumin Creatinine Ratio, Urine 05/10/2023 3, 05/01/2021 Foot Exam 05/10/2023 05/09/2022, 04/11, 07/20/2019, Additional history exists eGFR 05/10/2023 05/09/2022, 11/11, 12/01/2016, Additional history exists Depression Screening 08/30/2023 08/29/2022, 11/08/2021, 07/20/2019, Additional history exists Covid-19 Vaccine (2023-2 5 season) 2023 12/13/2020, 05/15/2020, 04/17/2020 Hemoglobin A1C 10/25/2023 04/24/2023, 1110/2022, 08/29/2022, Additional history exists Dilated Eye Exam 02/28/2024 02/27/2023, , 02/12/2021, Additional history exists Influenza Vaccine (#1) 2024 , 10/20/2019, 11/19/2018, Additional history exists Lipid Panel 04/26/2025 04/26/2024, 07/12, 05/09/2022, Additional history exists Colon Cancer Screening-FIT Discontinued 09/24/2018 Medical Devices Implanted Type Area Systems Designer Device Identifier Shelf Expiration Date Model / Serial / Lot Stent-02/13/2016 Implanted:Qty: 3 on 02/13/2016 Stent N/A: Heart [employer] Inspire 3 Electrode Cuff Tunnel Marc Lead Neurostimulator Sterile 4063 - [id number] - [id number] Implanted:Qty: 1 on 12/31/2021 by Clint Luis MD at [facility] Right: Neck [employer] [id number] 05/01/2023 4063 / [id number] / [employer] Lead Neurostimulator Inspire Respiratory Sens Cycle Strl Lf 4340 - [id number] - [id number] Implanted:Qty: 1 on 12/31/2021 by Clint Luis MD at [facility] [employer] 05/15/2023 4340 / [id number] / [employer] Inspire Generator 3028 - [id number] - [id number] Implanted:Qty: 1 on 12/31/2021 by Clint Luis MD at [facility], [facility] 05/04/2024 3028 / [id number] 1C / Procedures Procedure Name Priority Date/Time Associated Diagnosis Comments POCT LIPID PANEL Routine 04/26/2024 3:20 PM CDT Need for lipid screening POCT HEMOGLOBIN A1C Routine 04/24/2023 9 :59 AM CDT Type 2 diabetes mellitus with hyperglycemia, with long-term current use of insulin (HCC) HM DIABETES EYE EXAM Routine 02/27/2023 7:49 AM LEACH TANK TENDER EGFR Routine 05/09/2022 11:54 AM CDT Type 2 diabetes mellitus with hyperglycemia, with long-term current use of insulin (HCC) ALBUMIN CREATININE RATIO, URINE Routine 05/09/2022 11:54 AM CDT Type 2 diabetes mellitus with hyperglycemia, with long-term current use of insulin ([facility]) OCCULT BLOOD, FECAL (FIT) Routine 09/24/2018 11:00 [...] Blood spot 04/24/2023 9:59 AM CDT Result [facility] Patrick Katz MD POINT OF CARE TEST ORDERABLES Fi nal Result * HM DIABETES EYE EXAM (02/27/2023 7:49 AM LEACH TANK TENDER) Rei Provider HEALTH MAINTENANCE Final Result * eGFR (05/09/2022 [...] AM CDT 05/09/2022 8:18 PM CDT Result [facility] Patrick Katz MD LAB BLOOD ORDERABLES Final Resul t MARY[facility] JIN [address] Department [place] [address] * Albumin Creatinine Ratio, Urine (05/09/2022 11:54 AM CDT) Albumin Ur 16.2 mg/L [facility] Comment: Interpretive Data No reference range established. Current interpretive data was last revised 2018. Creatinine Ur 62.5 mg/dL [facility] Comment: Interpretive Data No reference range established. Current interpretive data was last revised 2018. Albumin Creatinine Ratio, Ur 26 1 - 29 mg/g [facility] Urine 05/09/2022 11:5 4 AM CDT 05/09/2022 6:52 PM CDT Patrick Katz MD LAB URINE ORDERABLES Final Resul t Performing Organization Address City/[facility] Co de Phone Number MARYLOU JIN [address] [address] Department [place] [address] * Occult Blood FIT, Fecal (09/24/2018 11:00 AM CDT) Fecal globulin by immunochemistry SEE NOTE [facility] [place] Comment: FECAL GLOBIN BY IMMUNOCHEMISTRY MICRO NUMBER: [id number] TEST STATUS: FINAL SPECIMEN SOURCE: INSURE () FOBT TEST CARD SPECIMEN QUALITY: ADEQUATE RESULT: Not Detected 09/24/2018 11:0 0 AM CDT 09/24/2018 11:02 AM CDT Narrative Resulting Agency Comment Performing Organization Information: Site ID: [id number] Name: [facility] Address: [address] [place], [place] [address] Jaffe [address] Director: Kentrell Gonzales D.O., MPH Patrick Katz MD LAB BODY FLUIDS AND STOOLS ORDER MADONNA Final Result Performing Organization Address [facility] de Phone Number LORENA CARRILLO [employer] JUSTINA Hale from Last 3 Months or Most Recently Relevant to Health Maintenance Insurance MEDICARE [facility] INSURANCE MEDICARE [facility] INSURANCE MEDICARE COMMERCIAL GENERIC Care Teams Force Dispatcher Relationship Specialty Start Date End Date Brgiido Bynum MD [address] [facility] [address] [place] [address] PCP - General Family Medicine 10/17/16
--- OUTSIDE RECORDS SUMMARY | 2024-09-24 08:52 | XMS_ITS | Clinical Summary ---
Author Organization [facility] Address [address] [facility] [place] [address] Care Team Providers Care Bryologist Name Role Phone Steven Chavez MD Unavailable [phone] Brigido Bynum MD Primary Care Provider [phone] Source Comments [facility],non-owned Affiliates and Associated Physician Practices is amultiple site organization consisting of ambulatory clinics and hospital sitesin [place], [place], [place] and [place]. This disclosure is being madepursuant to the Care Everywhere program and may not contain all information available regarding this patient. Last updated 17.[facility] Allergies No known active allergies Medications * [...] on file Legal Sex Male 11:59 AM PARTS PROFESSIONAL Gender Identity Not on file Sexual Orientation [...] 8:19 AM CDT Height 172.7 cm (5' 8) 09/26/2020 8:19 AM CDT Body Mass Index [...] season) 2023 DEPRESSION SCREENING 02/11/2024 INFLUENZA VACCINE (#1) 2024 11/15/2016 Respiratory Syncytial Virus (RSV) Vaccine [...] CDT) BUN 16 7 - 26 mg/dL [facility] Creatinine 0.7 0.6 - 1.2 mg/dL [facility] Sodium 140 136 - 145 mmol/L [facility] Potassium 4.3 3.5 - 4.5 mmol/L [facility] Chloride 102 98 - 107 mmol/L [facility] CO2 31(H) 22 - 29 mmol/L [facility] Glucose 112 70 - 115 mg/dL [facility] Calcium 9.7 8.4 - 10.2 mg/dL [facility] Protein Total 7.8 6.0 - 8.3 g/dL [facility] Albumin 4.1 3.4 - 5.0 g/dL [facility] Bilirubin Total 1.0 0.2 - 1.2 mg/dL [facility] Alkaline Phosphatase 83 40 - 150 Units/L [facility] ALT 27 0 - 55 Units/L [facility] AST 21 5 - 34 Units/L [facility] Anion Gap 11 8 - 18 [facility] BUN/Creatinine Ratio 23 7 - 23 [facility] Osmolality Calculated 277 270 - 300 mOsm/kg [facility] Albumin/Globulin Ratio 1.1 1.1 - 2.3 [facility] eGFR >60 >60 mL/min/1.7 3 m2 [facility] Blood specimen (specimen) BLOOD SPECIMEN / Unknown 08/02/2014 9:19 AM CDT 08/02/2014 9:30 AM CDT us Deniz Bañuelos MD LAB - CHEMISTRY ORDERABLES [facility] Result [address] [phone] * HEPATITIS SCREEN ACUTE (08/24/2010 1:00 PM [...] for Kidney Disorders. Resulting Agency Comment [facility] [place] [address] [facility] [phone] us Steven Chavez MD LAB - CHEMISTRY ORDERABLES Final Result [facility] INSURANCE BILL [address] [place] [address] from Last 3 Months or Most Recently Relevant to Health Maintenance Insurance AET AET Advance Directives * Full Code (Latest Code Status on File) Date Activated Date Inactivated Comments 07/13/2010 12:28 AM 07/14/2010 9:12 PM * Full Code Date Activated Date Inactivated Comments 07/12/2010 9:59 PM 07/13/2010 12:28 AM Care Teams Bryologist Relationship Specialty Start Date End Date Brigido Bynum MD [address] [place] [address] PCP - General 11/20/18 Steven Chavez MD Neurology 08/24/10
--- OUTSIDE RECORDS SUMMARY | 2024-09-24 08:52 | XMS_ITS | Encounter Summary ---
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
[2024-09-24 09:13] VITALS: BP 144/69; PULSE 63; RESP 18; TEMP 36.9; O2SAT 98
--- NOTE | 2024-09-24 09:35 | ECG_ITS ---
Test Date: 2024-09-24 10:09:47 Measurements Intervals [place] Rate: 63 P: 9 [place]: 194 QRS: -20 QRSD: 96 T: 50 QT: 399 QTc: 410 Interpretive Statements SINUS RHYTHM DELAYED PRECORDIAL R/S TRANSITION BASELINE ARTIFACT- I, II, III, AVR, AVL, AVF, V1-V6 BORDERLINE ECG No previous ECG available for comparison Electronically Signed On 09-24-2024 10:47:36 CDT by Navid Mariano D.O.
[2024-09-24] MEDS: ACETAMINOPHEN 500 MG TABLET 1000 MG PO (10:03)
[2024-09-24] MEDS: SODIUM CHLORIDE 0.9% IV 1,000 ML 999 ML IV CONT (10:03)
--- OUTSIDE RECORDS SUMMARY | 2024-09-24 10:03 | XMS_ITS | Clinical Summary ---
Author Organization [facility] Address [address] [place] [address] Care Team Providers Care Resident Intern Name Role Phone Steven Chavez MD Unavailable [phone] Brigido Bynum MD Primary Care Provider [phone] Source Comments [facility],non-owned Affiliates and Associated Physician Practices is amultiple site organization consisting of ambulatory clinics and hospital sitesin [place], [place], [place]. This disclosure is being madepursuant to the Care Everywhere program and may not contain all information available regarding this patient. 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2 mg/dL [facility] Protein Total 7.8 6.0 - 8.3 g/dL [facility] Albumin 4.1 3.4 - 5.0 g/dL [facility] Bilirubin Total 1.0 0.2 - 1.2 mg/dL [facility] Alkaline Phosphatase 83 40 - 150 Units/L [facility] ALT 27 0 - 55 Units/L [facility] AST 21 5 - 34 Units/L [facility] Anion Gap 11 8 - 18 [facility] BUN/Creatinine Ratio 23 7 - 23 [facility] Osmolality Calculated 277 270 - 300 mOsm/kg [facility] Albumin/Globulin Ratio 1.1 1.1 - 2.3 [facility] eGFR >60 >60 mL/min/1.7 3 m2 [facility] Blood specimen (specimen) BLOOD SPECIMEN / Unknown 08/02/2014 9:19 AM CDT 08/02/2014 9:30 AM CDT us Deniz Bañuelos MD LAB - CHEMISTRY ORDERABLES [facility] Result [address] [phone] * HEPATITIS SCREEN ACUTE (08/24/2010 1:00 PM [...] for Kidney Disorders. Resulting Agency Comment [facility] [place] [address] [facility] [phone] us Steven Chavez MD LAB - CHEMISTRY ORDERABLES Final Result [facility] INSURANCE BILL [address] [place] [address] from Last 3 Months or Most Recently Relevant to Health Maintenance Insurance AET AET Advance Directives * Full Code (Latest Code Status on File) Date Activated Date Inactivated Comments 07/13/2010 12:28 AM 07/14/2010 9:12 PM * Full Code Date Activated Date Inactivated Comments 07/12/2010 9:59 PM 07/13/2010 12:28 AM Care Teams Resident Intern Relationship Specialty Start Date End Date Brigido Bynum MD [address] [place] [address] PCP - General 11/20/18 Steven Chavez MD Neurology 08/24/10
--- OUTSIDE RECORDS SUMMARY | 2024-09-24 10:03 | XMS_ITS | Clinical Summary ---
Author Organization [facility] Address [address] [place] [address] Care Team Providers Care Natural Resources Engineer Name Role Phone Brigido Bynum MD Primary [...] mg tablet Take 5-1,000 mg by mouth folding machine tender before breakfast 90 tablet 3 2 Active Kien[employer] Ultra Test strip TEST BLOOD SUGAR 2-4 [...] Atorvastatin Assessment & Plan (12/19/2022 10:17 AM BETA TESTER): Chronic problem. Controlled on current Atorvastatin 40mg. Last lipid panel: 05/09/22 LDL=71, ZS=191. No changes at this time. Assessment & Plan (08/29/2022 10:15 AM CDT): Chronic problem. Controlled on current Atorvastatin 40mg. Last lipid panel: 05/09/22 LDL=71, ZL=131. No changes at this time. Assessment & [...] today Assessment & Plan (01/05/2019 2:21 PM BETA TESTER): Goal of treatment , LDL cholesterol less [...] therapy Assessment & Plan (02/19/2018 10:17 AM BETA TESTER): Goal of treatment , LDL cholesterol less [...] Synjardy. Assessment & Plan (12/19/2022 10:33 AM BETA TESTER): Chronic problem. Near goal, jamee from A1c [...] Synjardy Assessment & Plan (01/05/2019 2:20 PM BETA TESTER): Hba1c was Lab Results Component Value Date [...] goal hba1c is under 7.0 to prevent fdc diabetes complications ( eye , kidney and [...] morning. Assessment & Plan (02/19/2018 10:17 AM BETA TESTER): Hba1c was Lab Results Component Value Date [...] goal hba1c is under 7.0 to prevent shackler diabetes complications ( eye , kidney and [...] visit. Assessment & Plan (02/20/2017 9:36 AM BETA TESTER): Hba1c was 7.0 today, indicating better, adequate DM control 1800 calorie, consistent carb diet recommended 30 min daily aerobic and resistance exercise recommended Prevention and treatment of hyypoglcyemia discussed. Blood glucose monitoring with fingers sticks 1-2 x day . Foot care was discussed. Lower Levemir to 20 u hs Assessment & Plan (12/17/2016 1:50 PM BETA TESTER): Hba1c was 8.4 today, indicating suboptimal DM control 1800 calorie, consistent carb diet recommended 30 min daily aerobic and resistance exercise recommended Prevention and treatment of hyypoglcyemia discussed. Blood glucose monitoring with fingers sticks 1-2 x day . Foot care was discussed. Add Victoza Hypertension associated with diabetes 12/17/2016 Assessment & Plan (12/19/2022 10:16 AM BETA TESTER): Chronic problem. Controlled on current metoprolol 25mg [...] meds. Assessment & Plan (01/05/2019 2:21 PM BETA TESTER): Goal blood pressure is less than 140/85 [...] ARB Assessment & Plan (02/19/2018 10:17 AM BETA TESTER): Goal blood pressure is less than 140/85 Low salt diet recommended Daily aerobic exercise Continue current meds, including GEOFF-I or ARB Assessment & Plan (02/20/2017 9:35 AM BETA TESTER): Goal blood pressure is less than 140/85 Low salt diet recommended Daily aerobic exercise Check microalbumin , BMP Cerebrovascular accident (CVA) 11/19/2016 Chronic coronary artery disease 11/19/2016 Assessment & Plan (07/15/2017 11:27 AM CDT): Stable On Jardiance also Coronary artery disease invo lving [place] coronary artery of [place] heart without angina pectoris 10/17/2016 Assessment & Plan (12/17/2016 1:50 PM BETA TESTER): Indication for Jardiance and Victoza Get lipid profile. Resolved Problems Problem Noted Date Diagnosed Date Resolved Date Gross hematuria 02/19/2018 08/28/2022 Mixed hyperlipidemia 02/20/2017 023 Assessment & Plan (02/20/2017 9:36 AM BETA TESTER): Goal of treatment , LDL cholesterol less [...] on file Legal Sex Male 12:37 AM BETA TESTER Gender Identity Not on file Sexual Orientation [...] Discontinued 09/24/2018 Medical Devices Implanted Type Area Wagon Drill Operator Device Identifier Shelf Expiration Date Model / Serial / Lot Stent-02/13/2016 Implanted:Qty: 3 on 02/13/2016 Stent N/A: Heart [employer] Inspire 3 Electrode Cuff Tunnel Marc Lead Neurostimulator Sterile 4063 - [id number] - [id number] Implanted:Qty: 1 on 12/31/2021 by Clint Luis MD at [facility] Right: Neck [employer] [id number] 05/01/2023 4063 / [id number] / [employer] Lead Neurostimulator Inspire Respiratory Sens Cycle Strl Lf 4340 - [id number] - [id number] Implanted:Qty: 1 on 12/31/2021 by Clint Luis MD at [facility] [employer] 05/15/2023 4340 / [id number] / [employer] Inspire Generator 3028 - [id number] - [id number] Implanted:Qty: 1 on 12/31/2021 by Clint Luis MD at [facility], [facility] 05/04/2024 3028 / [id number] 1C / Procedures Procedure Name Priority Date/Time Associated Diagnosis Comments POCT LIPID PANEL Routine 04/26/2024 3:20 PM CDT Need for lipid screening POCT HEMOGLOBIN A1C Routine 04/24/2023 9 :59 AM CDT Type 2 diabetes mellitus with hyperglycemia, with long-term current use of insulin (HCC) HM DIABETES EYE EXAM Routine 02/27/2023 7:49 AM BETA TESTER EGFR Routine 05/09/2022 11:54 AM CDT Type 2 diabetes mellitus with hyperglycemia, with long-term current use of insulin (HCC) ALBUMIN CREATININE RATIO, URINE Routine 05/09/2022 11:54 AM CDT Type 2 diabetes mellitus with hyperglycemia, with long-term current use of insulin ([facility]) OCCULT BLOOD, FECAL (FIT) Routine 09/24/2018 11:00 [...] Blood spot 04/24/2023 9:59 AM CDT Result [facility] Patrick Katz MD POINT OF CARE TEST ORDERABLES Fi nal Result * HM DIABETES EYE EXAM (02/27/2023 7:49 AM BETA TESTER) Rei Provider HEALTH MAINTENANCE Final Result * [...] AM CDT 05/09/2022 8:18 PM CDT Result [facility] Patrick Katz MD LAB BLOOD ORDERABLES Final Resul t MARYLOU JIN [address] Department [place] [address] * Albumin Creatinine Ratio, Urine [...] Final Resul t Performing Organization Address City/[facility] Co de Phone Number MARYLOU JIN [address] [address] Department [place] [address] * Occult Blood FIT, Fecal (09/24/2018 11:00 AM CDT) Fecal globulin by immunochemistry SEE NOTE [facility] - [place] Comment: FECAL GLOBIN BY IMMUNOCHEMISTRY MICRO NUMBER: [id number] TEST STATUS: FINAL SPECIMEN SOURCE: INSURE () FOBT TEST CARD SPECIMEN QUALITY: ADEQUATE RESULT: Not Detected 09/24/2018 11:0 0 AM CDT 09/24/2018 11:02 AM CDT Narrative Resulting Agency Comment Performing Organization Information: Site ID: [place] Name: [facility] Address: [address] [place], [place] [address] Jaffe [address] Director: Kentrell Gonzales D.O., MPH Patrick Katz MD LAB BODY FLUIDS AND STOOLS ORDER MADONNA Final Result Performing Organization Address [facility] de Phone Number LORENA CARRILLO [employer] JUSTINA Hale from Last 3 Months or Most Recently Relevant to Health Maintenance Insurance MEDICARE [facility] INSURANCE MEDICARE [facility] INSURANCE MEDICARE COMMERCIAL GENERIC Care Teams Natural Resources Engineer Relationship Specialty Start Date End Date Brigido Bynum MD [address] [facility] [address] [place] [address] PCP - General Family Medicine 10/17/16
--- OUTSIDE RECORDS SUMMARY | 2024-09-24 10:03 | XMS_ITS | Encounter Summary ---
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
[2024-09-24] MEDS: MECLIZINE HCL 25 MG TABLET PO (10:04)
[2024-09-24 10:08] LABS: Hematocrit 44.0 % (42.0-52.0); Hemoglobin 14.4 g/dL (14.0-18.0); Immature Granulocyte Percent A 0.2 % (0-0.5); Lymphocytes Absolute Auto 1.84 K/mm3 (0.9-3.2); Mean Corpuscular HGB Conc 32.7 g/dl (32-36); Mean Corpuscular Hemoglobin 28.9 pg (26-34); Mean Corpuscular Volume 88.4 fl (80-100); Nucleated Red Blood Cells Absolute Auto 0.000 K/mm3 (0.0-0.012); Nucleated Red Blood Cells Perc 0.0 % (0.0-0.2); Platelet Count Result 205 k/mm3 (150-375); Red Blood Count 4.98 M/mm3 (4.6-6.20); White Blood Count 4.8 K/mm3 (4.5-10.0)
[2024-09-24 10:18] LABS: Alanine Aminotransferase 43 U/L (6-50); Albumin Level 4.2 g/dL (3.5-5.1); Alkaline Phosphatase 75 U/L (38-126); Anion Gap 8 mmol/L (4-12); Aspartate Amino Transferase 35 U/L (17-59); Bilirubin,Total 0.8 mg/dL (0.2-1.3); Blood Urea Nitrogen 10 mg/dL (9-20); Calcium 8.8 mg/dL (8.4-10.2); Carbon Dioxide 28 mmol/L (22-30); Chloride 103 mmol/L (98-107); Estimated CRCL calculation 108 ml/min; Estimated Glomerular Filt Rate > 60; Glucose 126 mg/dL (65-110); Potassium 4.3 mmol/L (3.4-5.0); Sodium 139 mmol/L (137-145); Total Protein 7.1 g/dL (6.3-8.2)
[2024-09-24 10:23] LABS: INR 1.0; Prothrombin Time 13.2 Seconds (11.1-14.7)
[2024-09-24 10:24] LABS: Partial Thromboplastin Time 24.6 Seconds (22.3-36.8)
--- NOTE | 2024-09-24 10:32 | ED.EYEPROB ---
HPI - Eye Problem General Chief complaint: Eye Problems Stated complaint: double vision, right sided head pressure Time Seen by Provider: 09/24/24 09:02 Source: patient Mode of arrival: ambulatory Limitations: no limitations History of Present Illness HPI Narrative: Patient is a 68-year-old male, with PMH of DM, HTN, previous TIA, who presents the ED with report of diplopia and headache. Patient reports he has had diplopia and right-sided headache since Friday night. Headache did worsen slightly yesterday. Patient reports diplopia with both eyes open, particularly with looking to the right. If he closes either eye, he does not not have any diplopia. He notes history diplopia in the past and states he required prism glasses. He reports persistent diplopia with or without his prism glasses currently. He also reports some dizziness, lightheadedness, feeling off balance due to the diplopia. Denies focal weakness or numbness. Denies slurred speech, confusion, dysarthria. Partner at bedside reports patient has otherwise seemed in his normal state health. Related Data Home Medications ?Medication ?Instructions ?Recorded ?Confirmed ?Last Taken ?Type melatonin 10 mg tablet 10 mg PO QHS 02/05/19 06/30/24 Unknown History aspirin 81 mg tablet,delayed 81 mg PO QHS 10/21/22 06/30/24 Unknown History release Allergies Allergy/AdvReac Type Severity Reaction Status Date / Time No Known Allergies Allergy Verified 09/24/24 09:18 Review of Systems Review of Systems: All systems reviewed & are unremarkable except as noted in HPI. All systems reviewed & are unremarkable except as noted in HPI and below PMFSH Past Medical History Medical History Valdez palsy Kidney stone Gastroesophageal reflux disease Obstructive sleep apnea Hypertension Type 2 diabetes mellitus Coronary artery disease Obesity Anemia Anxiety Depression Non-alcoholic micronodular cirrhosis of liver History of inguinal hernia Umbilical hernia History of rectal polyps Diverticulitis Barretts esophagus Hypercholesteremia CVA (cerebral vascular accident) x3 Restless legs syndrome (RLS) Trigeminal neuralgia Surgical History Surgical History History of cardiac catheterization History of coronary angioplasty History of coronary artery bypass graft (2017) History of colonoscopy with polypectomy History of bladder surgery History of inguinal hernia repair History of cholecystectomy History of tonsillectomy Family History Family History Father Family history of diabetes mellitus in first degree relative Sibling Family history of diabetes mellitus in first degree relative Social History Social History Social History: Surrogate medical decision maker: Paul Cainon, partner. Code status: Full code. Smoking packs per day: 3 Smoking cigarettes per day: 60.0 Years smoked: 10 Smoking pack-years: 30.00 Smoking status: Never smoker Tobacco type: cigarettes Second hand tobacco smoke exposure: Yes Smoking end date: 02/10/99 Alcohol intake: never Substance use: never Substance use type: does not use Do You Feel Safe in your Home?: Yes Lack of Transportation: No Lack of Food: Never True Current Housing: I Have Housing Concerned About Future Housing: No Difficulty Paying Gas/Electric Bills: No Difficulty Paying for Meds: No Currently Unemployed: YES Education: Bachelor's Degree Difficulty w/ Childcare or Family Care: No Living arrangements: with family Occupation/Education: retired Gender identity (if verbalized by the patient): Male Sexual Orientation (if Verbalized by the Patient): Lesbian, Jasmine, or Homosexual Spiritual care concerns: No Exam Narrative: GENERAL: Well appearing, obese with BMI of 30.5, non-toxic, in no acute distress. HEAD: Normocephalic, atraumatic. EYES: PERRL, conjunctiva clear. No nystagmus. Slight decreased extraocular ROM of R eye with far lateral gaze. No gaze deviation of L eye. Double vision reported with both eyes open, worsening and causing further split of fingers with right-sided horizontal gaze. No difficultly reported with either monocular vision. NECK: Supple. No meningeal signs. RESPIRATORY: Airway patent, respirations nonlabored. Clear to auscultation bilaterally, no rales, rhonchi, wheezing. CARDIOVASCULAR: Regular rate and rhythm without murmurs, rubs, or gallops. Peripheral pulses 2+ and equal bilaterally. MUSCULOSKELETAL: Moves all extremities. No gross deformities. SKIN: Warm, dry, normal color. No rashes. NEURO: A&O X3. Speech clear. Follows commands. 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 Otherwise cranial nerves intact. Sensation grossly intact. Steady gait. No ataxic movements. Strength 5/5 in upper and lower extremities bilaterally. [id number] testing intact bilaterally. [id number] testing slightly uncoordinated, but discoordination is present bilaterally. No pronator drift. Equal proofsheet corrector strength bilaterally. PSYCHIATRIC: Appropriate mood and affect. Normal interaction. Course Vital Signs Vital signs: Vital Signs Temperature 98.4 F 09/24/24 09:13 Pulse Rate 63 09/24/24 09:13 Respiratory Rate 18 09/24/24 09:13 Blood Pressure 144/69 H 09/24/24 09:13 Pulse Oximetry 98 09/24/24 09:13 Oxygen Delivery Room Air 09/24/24 09:13 Temperature 98.4 F 09/24/24 09:13 Pulse Rate 85 09/24/24 12:03 Respiratory Rate 16 09/24/24 12:03 Blood Pressure 144/69 H 09/24/24 09:13 Pulse Oximetry 99 09/24/24 12:03 Oxygen Delivery Room Air 09/24/24 09:13 MDM - Eye Problem MDM Narrative Medical decision making narrative: Patient presented to ED with right-sided headache, diplopia since Friday night. Vital signs are stable upon arrival. Patient in no acute distress. Upon my examination, neurologic exam appears consistent with cranial nerve 6 palsy w/ decreased extraocular range of motion with far lateral gaze of right eye compared to left. Diplopia does worsen with horizontal gaze to the right. Patient reports history of difficulty in the past and has required prism glasses. He is otherwise neurologically intact upon my examination. I do not appreciate any other focal deficits. He denies any other neurologic concerns. EKG is with sinus rhythm, no concerning ST changes. Basic laboratory studies are otherwise unremarkable. CTA of brain and carotids was obtained and w/o significant abnormalities, no aneurysm, no LVO, no acute findings. Does show several areas of very mild stenosis within carotid bulbs and carotid arteries. No concerning findings to explain diplopia. Symptoms have been ongoing for the past 2 days, would expect to see changes on imaging by now if intracranial/neurologic in process. Given that patient is otherwise completely neurologically intact, and has had this issue in the past requiring ophthalmologic intervention, I have very low suspicion for CVA at this time. Feel patient is safe for discharge home at this time. He is in agreement with this plan. Advised very close follow-up with Ophthalmology for further evaluation. He is planning to see Ophthalmology today. I discussed signs and symptoms that was suggest central cause of double plan, strict return precautions. Patient voiced understanding. Again feels comfortable going home. Discharged in stable condition. Medical Records Attestation: I reviewed the patient's medical records. Lab Data Attestation: I reviewed the patient's lab results. 09/24/24 09:57 09/24/24 09:57 Labs: Lab Results 09/24/24 Range/Units 09:57 WBC 4.8 (4.5-10.0) K/mm3 RBC 4.98 (4.6-6.20) M/mm3 Hgb 14.4 (14.0-18.0) g/dL Hct 44.0 (42.0-52.0) % MCV 88.4 (80-100) fl MCH 28.9 (26-34) pg MCHC 32.7 (32-36) g/dl RDW 12.7 (11.5-14.5) % Plt Count 205 (150-375) k/mm3 MPV 8.7 (7.4-10.4) fl Immature Gran % (Auto) 0.2 (0-0.5) % Neut % (Auto) 46.0 (45.5-73.1) % Lymph % (Auto) 38.6 (18.3-44.2) % [place] % (Auto) 9.4 H (2.6-8.5) % Eos % (Auto) 5.0 H (0-4.4) % Baso % (Auto) 0.8 (0.2-1.2) % Lymph # (Auto) 1.84 (0.9-3.2) K/mm3 [place] # (Auto) 0.5 (0.1-0.6) K/mm3 Eos # (Auto) 0.2 (0-0.3) K/mm3 Baso # (Auto) 0.0 (0.0-0.1) K/mm3 Abs Immat Gran (auto) 0.01 (0.00-0.031) K/mm3 Absolute Neuts (auto) 2.2 (1.3-6.7) K/mm3 Absolute Nucleated RBC 0.000 (0.0-0.012) K/mm3 Nucleated RBC % 0.0 (0.0-0.2) % PT 13.2 (11.1-14.7) Seconds INR 1.0 APTT 24.6 (22.3-36.8) Seconds Sodium 139 (137-145) mmol/L Potassium 4.3 (3.4-5.0) mmol/L Chloride 103 (98-107) mmol/L Carbon Dioxide 28 (22-30) mmol/L Anion Gap 8 (4-12) mmol/L BUN 10 D (9-20) mg/dL Creatinine 0.61 L (0.7-1.3) mg/dL Estim Creat Clear Calc 108 ml/min Estimated GFR > 60 (59 - ) Glucose 126 H (65-110) mg/dL Calcium 8.8 (8.4-10.2) mg/dL Total Bilirubin 0.8 (0.2-1.3) mg/dL AST 35 (17-59) U/L ALT 43 (6-50) U/L Alkaline Phosphatase 75 (38-126) U/L Total Protein 7.1 (6.3-8.2) g/dL Albumin 4.2 (3.5-5.1) g/dL Imaging Data Attestation: I personally reviewed and interpreted this imaging study as follows: Radiologist's impression: ITS Impressions Head/Neck CTA 09/24/24 10:42 IMPRESSION: 1. No acute intracranial hemorrhage. No mass effect. 2.The left anterior cerebral artery originates from the A1 segment of the left anterior cerebral artery. No visualized A1 segment of the right anterior cerebral artery. 3.Small amount of calcified plaque in the cavernous segments of the bilateral internal carotid arteries causing less than 10% stenosis. 4.Moderate amount of calcified plaque in the left carotid bulb causing 30% stenosis. 5.Small amount of plaque in the right carotid bulb causing less than 10% stenosis. 6.Origins of the vertebral arteries demonstrate a small amount of calcified plaque causing less than 20% stenosis. If symptoms persist or worsen, consider an MRI of the brain with and without contrast for further assessment. ECG Data EKG #1: Attestation: I personally reviewed and interpreted this ECG as follows: ECG completion date: 09/24/24 ECG completion time: 10:09 EKG Interpretation: normal rate (63), sinus rhythm, no ST changes and other (Baseline artifact) Discharge Plan Discharge Clinical Impression: Diplopia Patient Disposition: Home Condition: Stable Instructions: Antibiotic Form, Diplopia (ED) Additional Instructions: Follow-up closely with your primary care doctor and eye doctor for further evaluation. You may continue Tylenol, Ibuprofen as needed for headaches. Stay well hydrated. Return to the ED if you experience worsening or severe symptoms, severe pain, passing out, numbness or weakness of arm or leg, slurred speech, confusion, or any other symptoms of concern. Patient Language: Kyrgyz Prescriptions: No Action aspirin 81 mg tablet,delayed release (DR/EC) 81 mg PO QHS melatonin 10 mg tablet 10 mg PO QHS (DME) lancets Misc See Rx Instructions .ROUTE .MEDSUPPLY Qty: 200 2RF Rx Instructions: Use 4x daily to check blood sugar (DME) pen needle, diabetic [Novofine 32] 32 gauge x 1/4 needle See Rx Instructions .ROUTE .COMPLEX Qty: 100 6RF Dose Instruction: USE DIRECTED Rx Instructions: USE DIRECTED (DME) OneTouch Ultra Test Strip See Rx Instructions .ROUTE .COMPLEX Qty: 300 3RF Dose Instruction: TEST BLOOD SUGAR 2-4 TIMES DAILY. Rx Instructions: TEST BLOOD SUGAR 2-4 TIMES DAILY. atorvastatin 40 mg tablet 40 mg PO DAILY Qty: 90 3RF Jardiance 25 mg tablet 25 mg PO QAM Qty: 90 3RF metformin 500 mg tablet extended release 24 hr 500 mg PO DAILY Qty: 360 3RF metoprolol tartrate 25 mg tablet See Rx Instructions .ROUTE .COMPLEX Qty: 180 2RF Dose Instruction: TAKE 1 TABLET BY MOUTH TWICE A DAY Rx Instructions: TAKE 1 TABLET BY MOUTH TWICE A DAY meclizine 25 mg tablet 25 mg PO TID PRN (Reason: Dizziness) Qty: 60 0RF finasteride 5 mg tablet 5 mg PO DAILY Qty: 90 2RF pantoprazole 40 mg tablet,delayed release (DR/EC) See Rx Instructions .ROUTE .COMPLEX Qty: 180 2RF Dose Instruction: TAKE 1 TABLET BY MOUTH TWICE A DAY Rx Instructions: TAKE 1 TABLET BY MOUTH TWICE A DAY paroxetine HCl 20 mg tablet 20 mg PO DAILY Qty: 90 2RF nystatin 100,000 unit/gram cream 1 applic TOPICAL BID Qty: 30 1RF (DME) lancets [OneTouch Delica Plus Lancet] 30 gauge misc See Rx Instructions .Route Qty: 200 5RF Rx Instructions: As directed to check blood sugar TID clonazepam 0.5 mg tablet 0.5 mg PO .qhs Qty: 90 0RF insulin glargine U-300 conc [Toujeo Max U-300 SoloStar] 300 unit/mL (3 mL) insulin pen 30 unit subcut QHS Qty: 6 5RF Follow-up/Referrals: Brigido Bynum MD [Primary Care Provider] - Time of Disposition: 12:43
[2024-09-24 12:03] VITALS: PULSE 85; RESP 16; O2SAT 99
== END 2024-09-24 13:14 | disposition home or self-care (01) ==
PROVIDERS: Emergency Provider Physician Assistant; PCP Family Medicine
DX: H53.2 Diplopia (principal); I10 Essential (primary) hypertension; I25.10 Atherosclerotic heart disease of native coronary artery without angina pectoris; E11.9 Type 2 diabetes mellitus without complications; E78.00 Pure hypercholesterolemia, unspecified; G47.33 Obstructive sleep apnea (adult) (pediatric); G25.81 Restless legs syndrome; K21.9 Gastro-esophageal reflux disease without esophagitis; K22.70 Barrett's esophagus without dysplasia; F32.A Depression, unspecified; F41.9 Anxiety disorder, unspecified; Z95.1 Presence of aortocoronary bypass graft; Z98.61 Coronary angioplasty status; Z87.442 Personal history of urinary calculi; Z86.0100 Personal history of colon polyps, unspecified; Z86.73 Personal history of transient ischemic attack (TIA), and cerebral infarction without residual deficits; Z86.2 Personal history of diseases of the blood and blood-forming organs and certain disorders involving the immune mechanism; Z87.891 Personal history of nicotine dependence; Z90.49 Acquired absence of other specified parts of digestive tract; Z79.82 Long term (current) use of aspirin; Z79.84 Long term (current) use of oral hypoglycemic drugs; Z79.899 Other long term (current) drug therapy; Z79.4 Long term (current) use of insulin; R94.31 Abnormal electrocardiogram [ECG] [EKG]
CPT/HCPCS: 36415; 70496; 70498; 80053; 85025; 85610; 85730; 93005; 96360; 99284; A9270; J7030; Q9967

== ENCOUNTER 2024-12-16 09:24 | Outpatient (CLI) | payer MEDICARE, SELFPAY ==
--- OUTSIDE RECORDS SUMMARY | 2005-03-12 07:45 | XMS_ITS | Continuity of Care Document ---
Author Organization [facility] Address [address] [place] [address] [place] [address] Phone Care Team Providers Care Caregiver Services Home Name Role Phone Brandin Trevino MD Unavailable Unavailable Advance Directives Directive Yes / No Effective Date File Name No Information Encounters Encounter Description Practice Location Reason(s) For Visit Diagnoses Date Provider Providers Copied on Encounter [facility], [address], [place], [place], [id number], [place] tel:[phone] [facility] [place] No Information [address] Ghotra. [address] [facility] [address], [place], [place], [id number], [place]. tel:[phone] Family History Family Member Type Diagnosis Age At Onset No Information Payers Payer name Insurance type Covered libertarian ID Authoriza tion(s) No Information Social History Type Description Quantity Date Captured Comments Sex Male Smoking Status No Information Chief Complaint And Reason For Visit No Information Reason For Referral Reason For Referral No Information History Of Present Illness Encounter Date Complaint History Of Prese nt Illness No Information Functional Status Date Functional Assessmen t No Information Instructions Date Instruction Additional Infor mation No Information Assessments Type Assessment Date No Information Patient Care Teams Name Effective Dates (start - stop) Status Members No Information
[2024-12-16 10:48] LABS: Alanine Aminotransferase 46 U/L (6-50); Albumin Level 4.6 g/dL (3.5-5.1); Alkaline Phosphatase 78 U/L (38-126); Anion Gap 9 mmol/L (4-12); Aspartate Amino Transferase 36 U/L (17-59); Bilirubin,Total 1.2 mg/dL (0.2-1.3); Blood Urea Nitrogen 17 mg/dL (9-20); Calcium 9.2 mg/dL (8.4-10.2); Carbon Dioxide 29 mmol/L (22-30); Chloride 100 mmol/L (98-107); Estimated Glomerular Filt Rate > 60; Glucose 135 mg/dL (65-110); Potassium 4.6 mmol/L (3.4-5.0); Sodium 138 mmol/L (137-145); Total Protein 8.3 g/dL (6.3-8.2)
[2024-12-16 10:57] LABS: Hemoglobin A1C 7.2 % (<5.7)
[2024-12-16 11:24] LABS: Prostate Specific Antigen 0.3 ng/mL (< OR = 4.0)
--- OUTSIDE RECORDS SUMMARY | 2024-12-16 17:59 | XMS_ITS | Clinical Summary ---
Author Organization [facility] Address [address] [place] [address] Care Team Providers [facility] Name Role Phone Brigido Bynum MD Primary Care Provider Allergies No known active allergies Medications atorvastatin (LIPITOR) 40 mg tabletIndication s:hyperlipidemia Take 1 tablet (40 mg total) by mouth every morning Active aspirin 81 mg tablet TAKE 1 TABLET BY MOUTH EVERY DAY 30 tablet 5 8 Active Additional Information Patient taking differently: 81 mg oral Nightly, Indications: for stents, Reported on 12/13/2024 clonazePAM (KlonoPIN) 0.5 mg tabletIndication s:anxiety/ restless [...] mg tablet Take 5-1,000 mg by mouth pricing/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 member before breakfast 90 tablet 3 2 Active Wetzel EngineeringTouch Ultra Test strip TEST BLOOD SUGAR 2-4 [...] Active Problems Problem Noted Date Diagnosed Date Diplopia 11/18/2024 6th nerve palsy, 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 Controlled on current Atorvastatin 40mg. Last lipid panel: 05/09/22 LDL=71, HO=544. No changes at this time. Assessment & Plan (08/29/2022 10:15 AM CDT): Chronic problem. Controlled on current Atorvastatin 40mg. Last lipid panel: 05/09/22 LDL=71, CF=450. No changes at this time. Assessment & [...] today Assessment & Plan (01/05/2019 2:21 PM FALL INTERN): Goal of treatment , LDL cholesterol less [...] therapy Assessment & Plan (02/19/2018 10:17 AM FALL INTERN): Goal of treatment , LDL cholesterol less [...] Synjardy. Assessment & Plan (12/19/2022 10:33 AM FALL INTERN): Chronic problem. Near goal, jamee from A1c [...] Synjardy Assessment & Plan (01/05/2019 2:20 PM FALL INTERN): Hba1c was Lab Results Component Value Date [...] goal hba1c is under 7.0 to prevent skilled nursing diabetes complications ( eye , kidney and [...] morning. Assessment & Plan (02/19/2018 10:17 AM FALL INTERN): Hba1c was Lab Results Component Value Date [...] goal hba1c is under 7.0 to prevent skilled nursing diabetes complications ( eye , kidney and [...] visit. Assessment & Plan (02/20/2017 9:36 AM FALL INTERN): Hba1c was 7.0 today, indicating better, adequate DM control 1800 calorie, consistent carb diet recommended 30 min daily aerobic and resistance exercise recommended Prevention and treatment of hyypoglcyemia discussed. Blood glucose monitoring with fingers sticks 1-2 x day . Foot care was discussed. Lower Levemir to 20 u hs Assessment & Plan (12/17/2016 1:50 PM FALL INTERN): Hba1c was 8.4 today, indicating suboptimal DM control 1800 calorie, consistent carb diet recommended 30 min daily aerobic and resistance exercise recommended Prevention and treatment of hyypoglcyemia discussed. Blood glucose monitoring with fingers sticks 1-2 x day . Foot care was discussed. Add Victoza Hypertension associated with diabetes 12/17/2016 Assessment & Plan (12/19/2022 10:16 AM FALL INTERN): Chronic problem. Controlled on current metoprolol 25mg [...] meds. Assessment & Plan (01/05/2019 2:21 PM FALL INTERN): Goal blood pressure is less than 140/85 [...] ARB Assessment & Plan (02/19/2018 10:17 AM FALL INTERN): Goal blood pressure is less than 140/85 Low salt diet recommended Daily aerobic exercise Continue current meds, including GEOFF-I or ARB Assessment & Plan (02/20/2017 9:35 AM FALL INTERN): Goal blood pressure is less than 140/85 Low salt diet recommended Daily aerobic exercise Check microalbumin , BMP Cerebrovascular accident (CVA) 11/19/2016 Chronic coronary artery disease 11/19/2016 Assessment & Plan (07/15/2017 11:27 AM CDT): Stable On Jardiance also Coronary artery disease invo lving tununak coronary artery of tun[place]ak heart without angina pectoris 10/17/2016 Assessment & Plan (12/17/2016 1:50 PM FALL INTERN): Indication for Jardiance and Victoza Get lipid profile. Resolved Problems Problem Noted Date Diagnosed Date Resolved Date Gross hematuria 02/19/2018 08/28/2022 Mixed hyperlipidemia 02/20/2017 023 Assessment & Plan (02/20/2017 9:36 AM FALL INTERN): Goal of treatment , LDL cholesterol less [...] Encounters Date Type Department Care Team Description 12/16/2024 Telephone [facility] Medicine Ophthalmology [address] [facility] [address] [place] [phone] Ike Gutierrez MD 12/16/2024 Telephone [facility] Medicine Ophthalmology [address] [facility] [address] [place] [phone] Ike Gutierrez MD Call Back 12/13/2024 12:00 PM FALL INTERN Office Visit [facility] Medicine Neuro Sleep [address] [place] [address] 6th [address] [place] [phone] Ferdinand Garcia PA BEL (obstructive sleep apnea) (Primary Dx); Coronary artery disease involving tununak coronary artery of tununak heart without angina pectoris; S/P placement of hypoglossal nerve stimulator 12/06/2024 Telephone [facility] Ophthalmology [address] [place] [phone] Ike Gutierrez MD Neurology form 11/23/2024 Telephone [facility] Ophthalmology [address] [place] [phone] Ike Gutierrez MD MRI - Swabs 11/19/2024 Results Follow-Up [facility] Ophthalmology [address] [place] [phone] Ike Gutierrez MD Erythrocyte sedimentation rate, CRP (acute phase), CBC with auto differential, Differential, auto 11/18/2024 3:45 PM CDT Lab [address] [address] Unspecified disorder of visual pathways; Encounter for observation for other suspected diseases and conditions ruled out; 6th nerve palsy, right 11/18/2024 2:40 PM CDT Imaging Exam [facility] Ophthalmology [address] [place] [phone] Unspecified disorder of visual pathways 11/18/2024 2:00 PM CDT Office Visit [facility] Ophthalmology [address] [place] [phone] Ike Gutierrez MD Encounter for observation for other suspected diseases and conditions ruled out (Primary Dx); Unspecified disorder of visual pathways; 6th nerve palsy, right; Diplopia 11/04/2024 9:15 AM CDT Office Visit [facility] Cardiology [address] [place] [phone] Paul Lopez MD Chronic coronary artery disease (Primary Dx); Coronary artery disease involving tununak coronary artery of tununak heart without angina pectoris 10/20/2024 Telephone [facility] Ophthalmology [address] [place] [phone] Ike Gutierrez MD 10/18/2024 Telephone [facility] Medicine Ophthalmology [address] [place] [address] Ike Gutierrez MD Scheduling Appointments 10/12/2024 2:13 PM CDT - 10/12/2024 6:29 PM CDT Emergency [facility] Emergency Department [address] [place] [phone] Margy De Leon MD Abducens (sixth) nerve palsy, right (Primary Dx) Discharge Disposition: Discharge to home or self care from Last 3 Months Immunizations Immunization Administration Dates Next Due Influenza, Trivalent, IM (MDV) 11/15/2016 Surgical History Surgery Date Site/Laterality Comments CORONARY ANGIOPLASTY 02/11/2016 - 03/12/2016 3 HERNIA REPAIR CORONARY ARTERY BYPASS GRAFT 11/26/2016 SINUS ENDOSCOPY 11/01/2021 DRUG INDUCED ENDOSCOPY Medical History Medical History Date Comments Stroke (HCC) 2014 Diabetes type 2, controlled Chang's esophagus Cholelithiasis [...] staff should administer the PHQ-9) 0 08/29/2022 Personal Safety Answer Date Recorded Have you ever been in or are you currently in a harmful physical or emotional relationship or is someone making you feel afraid or unsafe? Denies 10/12/2024 Sex and Gender Information Value Date Recorded Sex Assigned at Not on file Legal Sex Male 12:37 AM FALL INTERN Gender Identity Not on file Sexual Orientation Not on file Last Filed Vital Signs Vital Sign Reading Time Taken Comments Blood Pressure 137/81 12/13/2024 11:34 AM FALL INTERN Pulse 65 12/13/2024 11:34 AM FALL INTERN Temperature 36.3 C (97.3 F) 12/13/2024 11:34 AM FALL INTERN Respiratory Rate 17 10/12/2024 1:54 PM CDT Oxygen Saturation 98% 12/13/2024 11:34 AM FALL INTERN Inhaled Oxygen Concentration - - Weight 95.9 kg (211 lb 8 oz) 12/13/2024 11:34 AM FALL INTERN Height 172.7 cm (5' 8) 12/13/2024 11:34 AM FALL INTERN Body Mass Index 32.16 12/13/2024 11:34 AM FALL INTERN Plan of Treatment Health Maintenance Due Date Last Done Comments Colon Cancer Screening-Colonoscopy 1955 Hepatitis C Screening 1955 Prostate Cancer Screening-PSA 1955 DTaP/Tdap/Td Vaccine (1 - Tdap) 12/26/1966 Hepatitis B Screening 12/26/1973 Pneumococcal vaccine 65+ (2 of 2 - PCV) 12/02/2012 12/03/2011 Abdominal Aortic Aneurysm (A AA) Screen 12/26/2020 Well Visit 65+ 12/26/2020 Zoster Vaccine (2 of 3) 03/12/2022 01/15/2022, 11/12 Fall Risk Assessment 12/31/2022 12/31/2021 Albumin Creatinine Ratio, Urine 05/10/2023 , 05/01/2021 Foot Exam 05/10/2023 05/09/2022, 04/11, 07/20/2019, Additional history exists Depression Screening 08/30/2023 08/29/2022, 11/08/2021, 07/20/2019, Additional history exists Hemoglobin A1C 10/25/2023 04/24/2023, 11/0 10/2022, 08/29/2022, Additional history exists Dilated Eye Exam 02/28/2024 02/27/2023, , 02/12/2021, Additional history exists Covid-19 Vaccine (2024-2 6 season) 2024 11/13/2022, 12/13/2020, 05/15/2020, Additional history exists Influenza Vaccine (#1) 2024 , 10/20/2019, 11/19/2018, Additional history exists Lipid Panel 04/26/2025 04/26/2024, 07/12, 05/09/2022, Additional history exists eGFR 10/12/2025 10/12/2024, 04/12, 12/02/2016, Additional history exists Colon Cancer Screening-FIT Discontinued 09/24/2018 Medical Devices Implanted Type Area Survey Engineer Device Identifier Shelf Expiration Date Model / Serial / Lot Stent-02/13/2016 Implanted:Qty: 3 on 02/13/2016 Stent N/A: Heart [employer] Inspire 3 Electrode Cuff Tunnel Marc Lead Neurostimulator Sterile 4063 - [id number] - [id number] Implanted:Qty: 1 on 12/31/2021 by Clint Luis MD at [facility] Right: Neck [employer] [id number] 05/01/2023 4063 / [id number] / [employer] Lead Neurostimulator Inspire Respiratory Sens Cycle Strl Lf 4340 - [id number] - [id number] Implanted:Qty: 1 on 12/31/2021 by Clint Luis MD at [facility] [employer] 05/15/2023 4340 / [id number] / [employer] Inspire Generator 3028 - [id number] - [id number] Implanted:Qty: 1 on 12/31/2021 by Clint Luis MD at [facility] [employer] 05/04/2024 3028 / [id number] / Procedures Procedure Name Priority Date/Time Associated Diagnosis Comments MUSK ANTIBODY Routine 11/18/2024 3:44 PM CDT DIFFERENTIAL AUTO Routine 11/18/2024 3:4 4 PM CDT Unspecified disorder of visual pathways Encounter for observation for other suspected diseases and conditions ruled out 6th nerve palsy, right CBC WITH AUTO DIFFERENTIAL Routine 11/18/2024 3:44 PM CDT Unspecified disorder of visual pathways Encounter for observation for other suspected diseases and conditions ruled out 6th nerve palsy, right CRP (ACUTE PHASE) Routine 11/18/2024 3:4 4 PM CDT Unspecified disorder of visual pathways Encounter for observation for other suspected diseases and conditions ruled out 6th nerve palsy, right ERYTHROCYTE SEDIMENTATION RATE Routine 11/18/2024 3:44 PM CDT Unspecified disorder of visual pathways Encounter for observation for other suspected diseases and conditions ruled out 6th nerve palsy, right MYASTHENIA GRAVIS EVALUATION WITH MUSK REFLEX Routine 11/18/2024 3:44 PM CDT Unspecified disorder of visual pathways Encounter for observation for other suspected diseases and conditions ruled out 6th nerve palsy, right OCT, RETINA - OU - BOTH EYES Routine 11/18/2024 3:13 PM CDT Encounter for observation for other suspected diseases and conditions ruled out OCT, OPTIC NERVE - OU - BOTH EYES Routine 11/18/2024 3:13 PM CDT Unspecified disorder of visual pathways CT HEAD WO CONTRAST ED Urgent/IP Urgent 10/12/2024 4:25 PM CDT EGFR STAT 10/12/2024 2:50 PM CDT DIFFERENTIAL AUTO STAT 10/12/2024 2:5 0 PM CDT APTT STAT 10/12/2024 2:50 PM CDT PROTIME-INR STAT 10/12/2024 2:50 PM CDT CBC WITH AUTO DIFFERENTIAL STAT 10/12/2024 2:50 PM CDT COMPREHENSIVE METABOLIC PANEL STAT 10/12/2024 2:50 PM CDT POCT LIPID PANEL Routine 04/26/2024 3:20 PM CDT Need for lipid screening POCT HEMOGLOBIN A1C Routine 04/24/2023 9 :59 AM CDT Type 2 diabetes mellitus with hyperglycemia, with long-term current use of insulin (HCC) HM DIABETES EYE EXAM Routine 02/27/2023 7:49 AM FALL INTERN ALBUMIN CREATININE RATIO, URINE Routine 05/09/2022 11:54 AM CDT Type 2 diabetes mellitus with hyperglycemia, with long-term current use of insulin (HCC) OCCULT BLOOD, FECAL (FIT) Routine 09/24/2018 11:00 AM CDT from Last 3 Months or Most Recently Relevant to Health Maintenance Results * Myasthenia Gravis Evaluation with MuSK reflex (11/18/2024 3:44 PM CDT) Myasthenia Gravis with MuSK Interpretation See Footnote [place] Comment: No informative autoantibodies were detected. A negative result does not exclude a diagnosis of autoimmune myasthenia gravis. Anti-acetylcholine receptor, binding 0.00 <=0.02 nmol/L [facility]ARY[facility]ER[facility] Comment: ADDITIONAL INFORMATION This test was developed and its performance characteristics determined by [facility] in a manner consistent with CLIA requirements. This test has not been cleared or approved by the U.S. Food and Drug Administration. Test Performed by: [facility] - [address] [address] Transitions Manager Rn: Anil Lutz Ph.D.; CLIA# [id number] Blood 11/18/2024 3:44 PM CDT 11/18/2024 5:26 PM CDT us Ike Gutierrez MD LAB BLOOD ORDERABLES Final Result MARYLOU GOODWIN [facility] [place] [address] [facility] * MuSK Antibody (11/18/2024 3:44 PM CDT) [facility] MuSK ab 0.00 0.00 - 0.02 nmol/L [facility] Comment: ADDITIONAL INFORMATION This test was developed using an analyte specific reagent. Its performance characteristics were determined by [facility] in a manner consistent with CLIA requirements. This test has not been cleared or approved by the U.S. Food and Drug Administration. Test Performed by: [place] [address] Transitions Manager Rn: Anil Lutz Ph.D.; CLIA# [id number] Blood 11/18/2024 3:44 PM CDT 11/18/2024 5:26 PM CDT Ike Gutierrez MD LAB BLOOD ORDERABLES Final Result [facility] [place] [address] [facility] * Differential, auto (11/18/2024 3:44 PM CDT) [facility] Neutrophil abs 4.34 1.50 - 6.50 K/cumm Imm gran abs 0.03 0.00 - 0.10 K/cumm [facility] Lymphocyte abs 2.56 0.80 - 3.30 K/cumm [facility] Monocyte abs 0.70 0.20 - 0.80 K/cumm [facility] Eosinophil abs 0.35 0.00 - 0.50 K/cumm [facility] Basophil abs 0.07 0.00 - 0.10 K/cumm [facility] Neutrophil pct 53.9 % [facility] Comment: Interpretive Data Percent cell count reference ranges are not reported, since discordance with absolute values may lead to misinterpretation of CBC data. Current Interpretive Data was last revised on 2017. Imm gran pct 0.4 % [facility] Comment: Interpretive Data Percent cell count reference ranges are not reported, since discordance with absolute values may lead to misinterpretation of CBC data. Current Interpretive Data was last revised on 2017. Lymphocyte pct 31.8 % [facility] Comment: Interpretive Data Percent cell count reference ranges are not reported, since discordance with absolute values may lead to misinterpretation of CBC data. Current Interpretive Data was last revised on 2017. Monocyte pct 8.7 % [facility] Comment: Interpretive Data Percent cell count reference ranges are not reported, since discordance with absolute values may lead to misinterpretation of CBC data. Current Interpretive Data was last revised on 2017. Eosinophil pct 4.3 % [facility] Comment: Interpretive Data Percent cell count reference ranges are not reported, since discordance with absolute values may lead to misinterpretation of CBC data. Current Interpretive Data was last revised on 2017. Basophil pct 0.9 % [facility] Comment: Interpretive Data Percent cell count reference ranges are not reported, since discordance with absolute values may lead to misinterpretation of CBC data. Current Interpretive Data was last revised on 2017. Blood 11/18/2024 3:44 PM CDT 11/18/2024 4:37 PM CDT us Ike Gutierrez MD LAB BLOOD ORDERABLES Final Result [facility] [place] [address] * CBC with auto differential (11/18/2024 3:44 PM CDT) WBC 7.70 3.80 - 9.90 K/cumm Hgb 15.2 13.0 - 17.5 g/dL [facility] Hct 44.5 38.9 - 50.3 % [facility] Plt 275 150 - 400 K/cumm [facility] MPV 9.1 9.1 - 12.3 fL [facility] RBC 5.16 4.30 - 5.80 M/cumm [facility] MCV 86.2 81.3 - 96.4 fL [facility] MCH 29.5 27.1 - 33.3 pg [facility] MCHC 34.2 32.3 - 35.7 g/dL [facility] RDW CV 12.9 11.1 - 14.9 % [facility] RDW SD 40.2 35.7 - 48.1 fL [facility] NRBC abs 0.00 0.00 - 0.01 K/cumm [facility] Blood 11/18/2024 3:44 PM CDT 11/18/2024 4:37 PM CDT Ike Gutierrez MD LAB BLOOD ORDERABLES Final Result Performing Organization Address [facility] Co de Phone Number [facility] [place] [address] * Erythrocyte sedimentation rate (11/18/2024 3:44 PM CDT) Erythrocyte sedimentation rate 8 1 - 20 mm/hr Blood 11/18/2024 3:44 PM CDT 11/18/2024 4:37 PM CDT Ike Gutierrez MD LAB BLOOD ORDERABLES Final Result Performing Organization Address [facility] Co de Phone Number [facility] [place] [employer] [place] [address] * CRP (acute phase) (11/18/2024 3:44 PM CDT) CRP 0.9 <=10.0 mg/L Blood 11/18/2024 3:44 PM CDT 11/18/2024 4:37 PM CDT Ike Gutierrez MD LAB BLOOD ORDERABLES Final Result Performing Organization Address [facility] Co de Phone Number [facility] [place] [employer] [place] [address] * OCT, Retina - OU - Both Eyes (11/18/2024 3:13 PM CDT) Central Macular Thickness OS 328 mircometers CONTINUUM Central Macular Thickness OD 274 micrometers CONTINUUM Anatomical Region Laterality Modality Head Other Narrative 11/18/2024 4:31 PM CDT Right Eye Quality was good. Scan locations included subfoveal. Progression has no prior data. Findings include normal foveal contour. Macular thickness was 274 micrometers. Left Eye Quality was good. Scan locations included subfoveal. Progression has no prior data. Findings include epiretinal membrane. Macular thickness was 328 mircometers. Notes Normal macular thickness OD. Epiretinal membrane OS. Ike Gutierrez MD OPHTH TOMOGRAPHY Fin al Result * OCT, Optic Nerve - OU - Both Eyes (11/18/2024 3:13 PM CDT) RNFL OS 92 micrometers CONTINUUM RNFL OD 82 micrometers CONTINUUM Anatomical Region Laterality Modality Head Other Narrative 11/18/2024 4:30 PM CDT Right Eye Reliability was good. Average RNFL thickness 82 micrometers. Left Eye Reliability was good. Average RNFL thickness 92 micrometers. Notes Normal retinal nerve fiber layer thickness OU. Ike Gutierrez MD OPHTH TOMOGRAPHY Fin al Result * CT Head WO Contrast (10/12/2024 4:25 PM CDT) Anatomical Region Laterality Modality Head and Neck N/A Computed Tomogra phy 10/12/2024 4:51 PM CDT Impressions 10/12/2024 5:04 PM CDT 1. No acute intracranial process. 2. Bilateral maxillary sinus mucosal thickening with air-fluid level in the left maxillary sinus. This most likely represents sequela of acute sinusitis. Dictated by: Niraj Katz MD The radiology attending physician has personally reviewed this study, and had reviewed and/or edited this written report and agrees with it. Electronically signed by: Madhav Erwin M.D. Narrative 10/12/2024 5:04 PM CDT EXAMINATION: CT head without contrast HISTORY: 68-year-old man who presents with diplopia, ophthalmology diagnosed isolated right 6th nerve palsy. TECHNIQUE: CT of the head was performed with images acquired from skull base to vertex without intravenous contrast. COMPARISON: CT and CTA 11/21/2016. FINDINGS: There is no acute intracranial hemorrhage. There is mild diffuse cerebral atrophy with mild ex vacuo ventriculomegaly. No mass effect or significant midline shift is present. There are multiple small periventricular white matter hypodensities, most likely sequela of chronic small vessel disease. The visualized portions of the orbits are normal. There is partial opacification of the left mastoid. There is mild mucosal thickening of the maxillary sinuses bilaterally with air-fluid level within the left maxillary sinus, see series 2, image 22. No fractures are identified. There is intracranial atherosclerosis. Procedure Note Madhav Erwin MD - 10/12/2024 EXAMINATION: CT head without contrast HISTORY: 68-year-old man who presents with diplopia, ophthalmology diagnosed isolated right 6th nerve palsy. TECHNIQUE: CT of the head was performed with images acquired from skull base to vertex without intravenous contrast. COMPARISON: CT and CTA 11/21/2016. FINDINGS: There is no acute intracranial hemorrhage. There is mild diffuse cerebral atrophy with mild ex vacuo ventriculomegaly. No mass effect or significant midline shift is present. There are multiple small periventricular white matter hypodensities, most likely sequela of chronic small vessel disease. The visualized portions of the orbits are normal. There is partial opacification of the left mastoid. There is mild mucosal thickening of the maxillary sinuses bilaterally with air-fluid level within the left maxillary sinus, see series 2, image 22. No fractures are identified. There is intracranial atherosclerosis. IMPRESSION: 1. No acute intracranial process. 2. Bilateral maxillary sinus mucosal thickening with air-fluid level in the left maxillary sinus. This most likely represents sequela of acute sinusitis. Dictated by: Niraj Katz MD The radiology attending physician has personally reviewed this study, and had reviewed and/or edited this written report and agrees with it. Electronically signed by: Madhav Erwin M.D. us Margy De Leon MD IMG CT PROCEDURES Final Resu lt * eGFR (10/12/2024 2:50 PM CDT) [facility] eGFR >90 >=60 mL/min/1. 73 m2 Comment: Interpretive Data Reference Interval Normal >/= [...] interpretive data was last reviewed 2020. Blood 10/12/2024 2:50 PM CDT 10/12/2024 3:05 PM CDT us Margy De Leon MD LAB BLOOD ORDERABLES Final R esult [facility] Department of Laboratories [place], [place] [phone] * (ABNORMAL) Differential, auto (10/12/2024 2:50 PM CDT) Pathologist [facility] Neutrophil abs 5.97 1.50 - 6.50 K/cumm Imm gran abs 0.02 0.00 - 0.10 K/cumm [facility] Lymphocyte abs 1.50 0.80 - 3.30 K/cumm [facility] Monocyte abs 1.17(H) 0.20 - 0.80 K/cumm [facility] [facility] Eosinophil abs 0.06 0.00 - 0.50 K/cumm [facility] Basophil abs 0.04 0.00 - 0.10 K/cumm [facility] Neutrophil pct 68.1 % [facility] Comment: Interpretive Data Percent cell count reference ranges are not reported, since discordance with absolute values may lead to misinterpretation of CBC data. Current Interpretive Data was last revised on 2017. Imm gran pct 0.2 % [facility] Comment: Interpretive Data Percent cell count reference ranges are not reported, since discordance with absolute values may lead to misinterpretation of CBC data. Current Interpretive Data was last revised on 2017. Lymphocyte pct 17.1 % [facility] Comment: Interpretive Data Percent cell count reference ranges are not reported, since discordance with absolute values may lead to misinterpretation of CBC data. Current Interpretive Data was last revised on 2017. Monocyte pct 13.4 % [facility] Comment: Interpretive Data Percent cell count reference ranges are not reported, since discordance with absolute values may lead to misinterpretation of CBC data. Current Interpretive Data was last revised on 2017. Eosinophil pct 0.7 % [facility] Comment: Interpretive Data Percent cell count reference ranges are not reported, since discordance with absolute values may lead to misinterpretation of CBC data. Current Interpretive Data was last revised on 2017. Basophil pct 0.5 % [facility] Comment: Interpretive Data Percent cell count reference ranges are not reported, since discordance with absolute values may lead to misinterpretation of CBC data. Current Interpretive Data was last revised on 2017. Blood 10/12/2024 2:50 PM CDT 10/12/2024 3:05 PM CDT us Margy De Leon MD LAB BLOOD ORDERABLES Final R esult [facility] [place] [address] * (ABNORMAL) CBC with auto differential (10/12/2024 2:50 PM CDT) WBC 8.76 3.80 - 9.90 K/cumm Hgb 15.2 13.0 - 17.5 g/dL [facility] Hct 45.5 38.9 - 50.3 % [facility] Plt 196 150 - 400 K/cumm [facility] MPV 9.0(L) 9.1 - 12.3 fL [facility] RBC 5.22 4.30 - 5.80 M/cumm [facility] MCV 87.2 81.3 - 96.4 fL [facility] MCH 29.1 27.1 - 33.3 pg [facility] MCHC 33.4 32.3 - 35.7 g/dL [facility] RDW CV 13.0 11.1 - 14.9 % [facility] RDW SD 41.5 35.7 - 48.1 fL [facility] NRBC abs 0.00 0.00 - 0.01 K/cumm [facility] Blood 10/12/2024 2:50 PM CDT 10/12/2024 3:05 PM CDT Margy De Leon MD LAB BLOOD ORDERABLES Final R esult Performing Organization Address City/[facility] Co de Phone Number [facility] [place] [address] * aPTT (10/12/2024 2:50 PM CDT) aPTT 26 26 - 38 sec Comment: Interpretive Data Heparin therapeutic range: 66.0 - 100.0 seconds. Range based on correlation with therapeutic heparin activity range of 0.3 - 0.7 Units/mL. Current interpretive data was last revised on 2022. Blood 10/12/2024 2:50 PM CDT 10/12/2024 3:01 PM CDT Margy De Leon MD LAB BLOOD ORDERABLES Final R esult Performing Organization Address City/[facility] Co de Phone Number [facility] [place] [address] * Protime-INR (10/12/2024 2:50 PM CDT) PT 12.7 10.2 - 13.5 sec INR 1.13 0.90 - 1.20 [facility] Comment: Interpretive data Oral anticoagulant therapeutic ranges: Venous thromboembolism prophylaxis or treatment: 2.0-3.0 CARDIOLOGY Standard range: 2.0-3.0 High-intensity range: 2.5-3.5 Refer to indication-specific guidelines for appropriate target ranges for prosthetic heart valve replacement. Current interpretive data was last revised on 2019. Blood 10/12/2024 2:50 PM CDT 10/12/2024 3:01 PM CDT us Margy De Leon MD LAB BLOOD ORDERABLES Final R esult [facility] [place] [address] * (ABNORMAL) Comprehensive metabolic panel (10/12/2024 2:50 PM CDT) Sodium 139 135 - 145 mmol/L Potassium, pl 4.4 3.3 - 4.9 mmol/L [facility] Chloride 102 97 - 110 mmol/L [facility] CO2 25 22 - 32 mmol/L [facility] Anion gap 12 2 - 15 mmol/L [facility] BUN 14 6 - 25 mg/dL [facility] Creatinine 0.68(L) 0.80 - 1.30 mg/dL [facility] Glucose 102 70 - 199 mg/dL [facility] Comment: Interpretive Data Fasting glucose >/= 126 mg/dl is diagnostic for diabetes. Fasting is defined as no caloric intake for at least 8 hours. Fasting glucose between 100 mg/dl to 125 mg/dl is diagnostic of prediabetes. In a patient with classic symptoms of hyperglycemia or hyperglycemic crisis, a random glucose >/= 200 mg/dl is diagnostic for diabetes. In the absence of unequivocal hyperglycemia, results should be confirmed by repeat testing. The classification and Diagnosis of Diabetes Diabetes Care 2022; 46: S19-S40. Current interpretive data was last revised 2022. Calcium 9.6 8.5 - 10.3 mg/dL [facility] Bilirubin, total 1.6(H) 0.1 - 1.2 mg/dL [facility] Protein, pl 7.9 6.5 - 8.5 g/dL [facility] Albumin 4.3 3.5 - 5.0 g/dL [facility] Alk phos 84 40 - 130 Units/L [facility] ALT 36 7 - 55 Units/L [facility] AST 26 10 - 50 Units/L [facility] Blood 10/12/2024 2:50 PM CDT 10/12/2024 3:05 PM CDT Margy De Leon MD LAB BLOOD ORDERABLES Final R esult [facility] [place] [address] * POCT lipid panel (04/26/2024 3:20 PM [...] % Blood spot 04/24/2023 9:59 AM CDT Patrick Katz MD POINT OF CARE TEST ORDERABLES Fi nal Result * HM DIABETES EYE EXAM (02/27/2023 7:49 AM FALL INTERN) Rei Rojo MD HEALTH MAINTENANCE Final Result * Albumin Creatinine Ratio, Urine (05/09/2022 11:54 AM CDT) Albumin Ur 16.2 mg/L [facility] Comment: Interpretive Data No reference range established. Current interpretive data was last revised 2018. Creatinine Ur 62.5 mg/dL [facility] Comment: Interpretive Data No reference range established. Current interpretive data was last revised 2018. Albumin Creatinine Ratio, Ur 26 1 - 29 mg/g [facility] Urine 05/09/2022 11:5 4 AM CDT 05/09/2022 6:52 PM CDT Patrick Katz MD LAB URINE ORDERABLES Final Resul t Performing Organization Address City/[facility] Co de Phone Number [facility] [address] [place] [address] * Occult Blood FIT, Fecal (09/24/2018 11:00 AM CDT) Fecal globulin by immunochemistry SEE NOTE [facility] [place] Comment: FECAL GLOBIN BY IMMUNOCHEMISTRY MICRO NUMBER: [id number] TEST STATUS: FINAL SPECIMEN SOURCE: INSURE (TM) FOBT TEST CARD SPECIMEN QUALITY: ADEQUATE RESULT: Not Detected 09/24/2018 11:0 0 AM CDT 09/24/2018 11:02 AM CDT Narrative Resulting Agency Comment Performing Organization Information: Site ID: [place] Name: [facility] Address: [address] [address] Director: Kentrell Gonzales D.O., MPH Patrick Katz MD LAB BODY FLUIDS AND STOOLS ORDER MADONNA Final Result Performing Organization Address City/[facility] Co de Phone Number [facility] [employer] [place] from Last 3 Months or Most Recently Relevant to Health Maintenance Insurance MEDICARE [facility] INSURANCE MEDICARE [facility] INSURANCE MEDICARE [facility] INSURANCE Care Teams Hospital Chaplain Relationship Specialty Start Date End Date Brigido Bynum MD [address] [facility] [address] [place] [address] PCP - General Family Medicine 10/17/16
--- OUTSIDE RECORDS SUMMARY | 2024-12-16 17:59 | XMS_ITS | Encounter Summary ---
Author Organization [facility] Address [address] [place] [address] Phone Care Team Providers Care Manager Testing Name Role Phone Brigido Bynum MD Primary Care Provider Reason for Visit * Reason Onset Date Comments Call Back 12/16/2024 Encounter Details Date Type Department Care Team (Late st Contact Info) Description 12/16/2024 Telephone [facility] Medicine Ophthalmology [address] [facility] 6th [place] [address] Ike Gutierrez MD [address] [facility] [address] [place] [address] Call Back Social History Tobacco Use Types Packs/Day Years [...] on file 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 Please advise. Best call back#: [phone] ING CARE PRACTITIONER * Telephone Encounter - Romelia Alejandro - 12/16/2024 1:18 PM CST LVM stating that I was calling to check on his symptoms and discuss a few things with him. I let him know that I would also send a icix message with further details, and requested that he either reply to my message or return my call. ING CARE PRACTITIONER documented in this encounter Plan of Treatment Not on file documented as of this encounter Visit Diagnoses Not on filedocumented in this encounter Care Teams Manager Testing Relationship Specialty Start Date End Date Brigido Bnyum MD [address] [facility] [address] [place] [address] PCP - General Family Medicine 10/17/16 documented as of this encounter
--- OUTSIDE RECORDS SUMMARY | 2024-12-16 17:59 | XMS_ITS | Encounter Summary ---
Author Organization [facility] Address [address] [place] [address] Phone Care Team Providers Care Live In Caregiver Name Role Phone Brigido Bynum MD Primary Care Provider Reason for Visit * Reason Onset Date Comments Neurology form 12/06/2024 Encounter Details Date Type Department Care Team (Late st Contact Info) Description 12/06/2024 Telephone [facility] Medicine Ophthalmology [address] [place], [place] [id number] Ike Gutierrez MD [address] [facility] [address] [place], [place] [id number] Neurology form Social History Tobacco Use Types Packs/Day Years [...] on file Legal Sex Male 12:37 AM [employer] Gender Identity Not on file Sexual Orientation Not on file documented as of this encounter Functional Status * BP Location Answer Date of Assessment Author Right arm 12/13/2024 11:34 AM [employer] Arielle Zamarripa, PSGT * BP Location Answer Date of Assessment Author Right arm 12/13/2024 11:34 AM [employer] Arielle Zamarripa, PSGT documented as of this encounter Miscellaneous Notes * Telephone Encounter - Romelia Alejandro - 12/16/2024 2:16 PM CST Spoke with patient and confirmed this form did not need to be signed. Disregard. [employer] * Telephone Encounter - Romelia Alejandro - 12/16/2024 1:24 PM CST Reviewed with ANGELITO, but evaluation may not be needed. LVM for patient and sent [employer] message regarding this. [employer] * Telephone Encounter - Princess Val - 12/06/2024 12:13 PM CDT Pt papers have been printed to review with Dr. EATON, please review with Luz Elena (the form has been printed an placed in her orange folder). * Telephone Encounter - Kike Lugo - 12/06/2024 11:48 AM CDT Got a phone call from Frieda at [employer] (3rd alliance party lab the pt uses) They sent a PRIMARY NEUROLOGY TESTING REQUISITION FORM for Dr. Gutierrez to sign and send back Form is scanned into Media tab from 11/24/24 Please sign and date the form and fax to: [phone] If any questions: Frieda - [phone] documented in this encounter Plan of Treatment Not on file documented as of this encounter Visit Diagnoses Not on filedocumented in this encounter Care Teams Live In Caregiver Relationship Specialty Start Date End Date Brigido Bynum MD [address] [facility] [address] [place] [address] PCP - General Family Medicine 10/17/16 documented as of this encounter
--- OUTSIDE RECORDS SUMMARY | 2024-12-16 17:59 | XMS_ITS | Clinical Summary ---
Author Organization [facility] Address [address] [place] [address] Care Team Providers Care Audiovisual Production Specialist Name Role Phone Brigido Bynum MD Primary Care Provider [phone] Allergies No known active allergies Medications aspirin EC 81 MG tablet TAKE 1 TABLET BY MOUTH EVERY DAY 8 Active gabapentin 600 MG tablet TAKE 1 TABLET BY MOUTH TWICE A DAY 0 Active clonazePAM 0.5 MG tablet Take 0.5 mg by mouth daily. Active SYNJARDY XR 25-1000 MG TABLET SR 24 HR Take 1 tablet by mouth daily. 9 Active ferrous sulfate EC 324 (65 Fe) MG tablet Take 324 mg by mouth 2 (two) times daily. 9 Active finasteride 5 MG tablet Take 5 mg by mouth daily. 8 Active Glucose Blood (ONETOUCH ULTRA) test strip TEST BLOOD SUGAR 2-4 TIMES DAILY. 8 Active insulin detemir (LEVEMIR FLEXTOUCH) 100 UNIT/ML flextouch PEN Inject 30 Units into the skin daily. 0 Active Insulin Pen Needle (FIFTY50 PEN NEEDLES) 32G X 6 MM Misc USE ONCE DAILY 9 Active OneTouch Delica Lancets 33G Misc USE TO TEST BLOOD SUGAR 2 TO 4 TIMES PER DAY 9 Active meclizine 25 MG tablet TAKE 1 TABLET BY MOUTH EVERY 6 HOURS NEEDED FOR VERTIGO 9 Active Melatonin 10 MG Tab Take 10 mg by mouth daily. Active metoprolol tartrate 25 MG tablet Take 25 mg by mouth 2 (two) times daily. Active nitroglycerin 0.4 MG SL tablet Put one tablet under the tongue every 5 minutes as needed for chest pain ,with a maximum of 3 tablets 7 Active nystatin cream Apply topically 2 (two) times daily. APPLY TO AFFECTED AREA 0 Active pantoprazole EC 40 MG tablet Take 40 mg by mouth 2 (two) times daily. Active PARoxetine 20 MG tablet Take 20 mg by mouth daily. Active atorvastatin 40 MG tablet Take 40 mg by mouth daily. Active naloxone (NARCAN) 4 MG/0.1ML nasal spray 1 spray by Nasal route as needed for Opioid reversal. may repeat every 2 to 3 minutes in alternating nostrils until medical assistance becomes available 1 each 4 01/26/20 25 Active Active Problems Problem Noted Date Diagnosed Date Gross hematuria 02/19/2018 Hyperlipidemia associated with type 2 diabetes m mariluitus 07/15/2017 Overview (08/09/2019): Last Assessment & Plan: Goal of treatment , LDL cholesterol less [...] therapy with Lipitor Lipid panel checked today Mixed hyperlipidemia 02/20/2017 Overview (08/09/2019): Last Assessment & Plan: Goal of treatment , LDL cholesterol less than 100 ( less than 70 in patients with history of heart attacks and / or strokes ) NonHDL cholesterol goal less than 130 ( less than 100 in patients with history of heart attacks and / or strokes ) Continue statin therapy Hx of CABG 02/18/2017 Hypertension associated with diabetes 12/17/2016 Overview (08/09/2019): Last Assessment & Plan: Goal blood pressure is less than 140/85 Low salt diet recommended Daily aerobic exercise Continue current meds. Type 2 diabetes mellitus wit h hyperglycemia, with long-term current use of insulin 12/17/2016 Overview (08/09/2019): Last Assessment & Plan: Hba1c was Lab Results Component Value Date [...] discussed. Insulin dose: Continue current Continue Synjardy Atherosclerosis of coronary artery 10/17/2016 Overview (08/09/2019): Last Assessment & Plan: Stable On Jardiance also Last Assessment & Plan: Indication for Jardiance and Victoza Get lipid profile. S/P coronary artery stent placement 10/17/2016 Cerebrovascular accident (CVA) 08/24/2010 Trigeminal neuralgia 08/24/2010 Social History Tobacco Use Types Packs/Day Years Used Date Smoking Tobacco: Former Cigarettes S tarted: 1994 Smokeless Tobacco: Never Sex and Gender Information Value Date Recorded Sex Assigned at Not on file Legal Sex Male 4:39 PM CDT Gender Identity Not on file Sexual Orientation Not on file Last Filed Vital Signs Vital Sign Reading Time Taken Comments Blood Pressure 155/76 01/26/2024 5:09 PM GOLD CHARMER Pulse 79 01/26/2024 5:09 PM GOLD CHARMER Temperature 36.6 C (97.9 F) 01/26/2024 5:09 PM GOLD CHARMER Respiratory Rate 18 01/26/2024 5:09 PM GOLD CHARMER Oxygen Saturation 96% 01/26/2024 5:09 PM GOLD CHARMER Inhaled Oxygen Concentration - - Weight 99.8 kg (220 lb) 01/26/2024 5:09 PM GOLD CHARMER Height 172.7 cm (5' 8) 01/26/2024 5:09 PM GOLD CHARMER Body Mass Index 33.45 01/26/2024 5:09 PM GOLD CHARMER Plan of Treatment Health Maintenance Due Date Last Done Comments ASCVD Statin 1955 Colorectal Cancer Screening Colonoscopy (10 Years) 1955 Kidney Health Evaluation 1955 Hemoglobin A1C 1955 Diabetes: Retinopathy Eye Exam 12/26/1973 DTaP, Tdap and Td Vaccines ( 1 - Tdap) 12/26/1974 Pneumococcal Vaccine: 50+ Years (1 of 2 - PCV) 12/26/1974 Zoster Vaccines (1 of 2) 12/26/2005 RSV Immunization or 60+ Years (1 - Risk 60-74 years 1-dose series) 2015 Annual Medicare Wellness Visit 12/26/2020 ASCVD LDL 04/07/2022 04/07/2021 Lipid Panel 08/06/2024 08/07/2023, 04/07/2021, 07/20/2019 COVID-19 Vaccine (1 - 2024-2 6 season) 2024 Influenza Adult (#1) 2024 11/19/2018, 11/15/2016 Hepatitis C Completed 08/24/2010 AAA SCREENING Completed 01/26/2024, 09/20/2020 Hepatitis A Vaccines Aged Out No long er eligible based on patient's age to complete this topic Meningococcal B Vaccine Aged Out No l onger eligible based on patient's age to complete this topic Meningococcal Vaccine Aged Out No zenaida rosa eligible based on patient's age to complete this topic RSV Immunizations Under 20 Months Aged Out No longer eligible b ased on patient's age to complete this topic Procedures Procedure Name Priority Date/Time Associated Diagnosis Comments CT CHEST WO CON STAT 01/26/2024 5:41 PM GOLD CHARMER LIPID PANEL Routine 04/07/2021 7:40 AM GOLD CHARMER Diabetes mellitus Nocturia Coronary atherosclerosis of alutiiq coronary artery Dysuria Essential hypertension, malignant Hematuria syndrome Umbilical hernia without obstruction or gangrene from Last 3 Months or Most Recently Relevant to Health Maintenance Results * CT CHEST WO CON (01/26/2024 5:41 PM GOLD CHARMER) Anatomical Region Laterality Modality Chest Computed Tomogra phy 01/26/2024 6:15 PM GOLD CHARMER Impressions 01/26/2024 6:25 PM GOLD CHARMER IMPRESSION: 1. Nondisplaced right lateral 5th-8h rib fractures. 2. Chronic/nonemergent findings as above. Referred By: Interpreted By: Ashia Osei DO, 01/26/2024 6:15 PM Narrative 01/26/2024 6:25 PM GOLD CHARMER [address] [place] [address] EXAMINATION: CT Chest REPORT DATE: 01/26/2024 6:15 PM INDICATION: R alteral rib pain after fall 2 days ago COMPARISON(S): Same day right shoulder radiographs. TECHNIQUE: CT acquisition of the chest. Coronal and sagittal reformatted images along with an axial MIP provided from the source data. Coronal and sagittal reformatted images were obtained from the source data. A dose lowering technique was utilized for this procedure which may include but is not limited to dose reduction techniques, automated exposure control, and/or the use of iterative reconstruction in accordance with ALARA principle. Contrast: No intravenous contrast. FINDINGS: SUPPORT DEVICES: None. LOWER NECK: Imaged soft tissues of the lower neck are normal. CHEST: Lungs: No consolidation. Central airways are clear. Pleural Space: No pleural effusion or pneumothorax. Mediastinum: Post median sternotomy. Thoracic aorta is unremarkable. Esophagus is normal. Heart: Cardiomegaly. No pericardial effusion. Severe coronary artery calcifications. Lymph nodes: No mediastinal, hilar, or axillary lymphadenopathy. UPPER ABDOMEN: No acute findings of the upper abdomen. Postcholecystectomy. Mildly prominent periportal lymph nodes, not enlarged by size criteria. MUSCULOSKELETAL: Soft tissues: Right chest wall neurostimulator Bones: Nondisplaced RIGHT lateral fifth, sixth, seventh, and 8 rib fractures. Flowing thoracic osteophytes concerning for diffuse idiopathic skeletal hyperostosis (DISH). Procedure Note Ashia Osei, - 01/26/[address] [place] [address] EXAMINATION: CT Chest REPORT DATE: 01/26/2024 6:15 PM INDICATION: R alteral rib pain after fall 2 days ago COMPARISON(S): Same day right shoulder radiographs. TECHNIQUE: CT acquisition of the chest. Coronal and sagittal reformattedimages along with an axial MIP provided from the source data. Coronal andsagittal reformatted images were obtained from the source data. A doselowering technique was utilized for this procedure which may include butis not limited to dose reduction techniques, automated exposure control,and/or the use of iterative reconstruction in accordance with ALARAprinciple. Contrast: No intravenous contrast. FINDINGS: SUPPORT DEVICES: None. LOWER NECK: Imaged soft tissues of the lower neck are normal. CHEST: Lungs: No consolidation. Central airways are clear. Pleural Space: No pleural effusion or pneumothorax. Mediastinum: Post median sternotomy. Thoracic aorta is unremarkable.Esophagus is normal. Heart: Cardiomegaly. No pericardial effusion. Severe coronary arterycalcifications. Lymph nodes: No mediastinal, hilar, or axillary lymphadenopathy. UPPER ABDOMEN: No acute findings of the upper abdomen. Postcholecystectomy. Mildlyprominent periportal lymph nodes, not enlarged by size criteria. MUSCULOSKELETAL: Soft tissues: Right chest wall neurostimulator Bones: Nondisplaced RIGHT lateral fifth, sixth, seventh, and 8 ribfractures. Flowing thoracic osteophytes concerning for diffuse idiopathicskeletal hyperostosis (DISH). IMPRESSION: 1. Nondisplaced right lateral 5th-8h rib fractures. 2. Chronic/nonemergent findings as above. Referred By: Interpreted By: Ashia Osei DO, 01/26/2024 6:15 PM Steven Hernandez DO CT Final Result * (ABNORMAL) LIPID PANEL (04/07/2021 7:40 AM GOLD CHARMER) Pathologist [facility] CHOLESTEROL 130 0 - 200 MG/DL 04/07/2021 9:32 AM [facility] TRIGLYCERIDES 99 0 - 150 MG/DL 04/07/2021 9:32 AM [facility] HDL 39(L) >40 MG/DL 04/07/2021 9:32 AM [facility] LDL (CALCULATED) 71 <100 MG/DL 04/07/2021 9:32 AM [facility] NON HDL CHOLESTEROL 91 0 - 130 MG/DL 04/07/2021 9:32 AM [facility] Comment: NOTE: WHEN THE TRIGLYCERIDES ARE >200 mg/dL, NON HDL C IS A SECONDARY TARGET OF THERAPY, WITH A GOAL 30 mg/dL HIGHER THAN THE IDENTIFIED LDL C GOAL. CHOL/HDL RATIO 3.3 0.0 - 4.5 04/07/2021 9:32 AM [facility] VLDL CALCULATION 20 5 - 55 MG/DL 04/07/2021 9:32 AM GOLD CHARMER [facility] LIPID INTERPRETATION 04/07/2021 9:32 AM GOLD CHARMER [facility] Comment: [facility] CONCENSUS REPORT RECOMMENDATIONS: ADULT CHILD LOW RISK: CHOLESTEROL <200 <170 TRIGLYCERIDE <150 --- HDL >=60 --- LDL <100 <110 BORDERLINE: CHOLESTEROL 200-239 170-199 TRIGLYCERIDE 150-199 --- HDL 40-59 --- LDL 100-159 110-129 HIGH RISK: CHOLESTEROL >=240 >=200 TRIGLYCERIDE >=200 --- HDL <40 --- LDL >=160 >=130 04/07/2021 7:40 AM GOLD CHARMER us Brigido Bynum MD LABORATORY Final Result [facility] [address] [facility] [place] [address], from Last 3 Months or Most Recently Relevant to Health Maintenance Insurance MEDICARE [facility] INDEMNITY Care Teams Audiovisual Production Specialist Relationship Specialty Start Date End Date Brigido Bynum MD [address] [place] [address] PCP - General FAMILY PRACTICE 08/09/19
--- OUTSIDE RECORDS SUMMARY | 2024-12-16 17:59 | XMS_ITS | Encounter Summary ---
Author Organization [facility] Address [address] [place] [address] Phone Care Team Providers Care Upkeep Mechanic Name Role Phone Brigido Bynum MD Primary Care Provider Encounter Details Date Type Department Care Team (Late st Contact Info) Description 12/16/[address] 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 Patient reported that he woke up last Friday, 12/07, and was able to see. His diplopia was resolved, and was able to remove his eye patch. He stated that since removing the eye patch, he has had daily headaches in the morning that also occur intermittently throughout the day. Discussed symptoms with Dr. Gutierrez following phone call, and he would like to hold off on the MRI and observe patient closely for now. We will keep his current follow-up visit as scheduled (01/14/2025), and cancel MRI. Will forward to [facility] to help coordinate. [employer] documented in this encounter Plan of Treatment Not on file documented as of this encounter Visit Diagnoses Not on filedocumented in this encounter Care Teams Upkeep Mechanic Relationship Specialty Start Date End Date Brigido Bynum MD [address] [address] PCP - General Family Medicine 10/17/16 documented as of this encounter
--- OUTSIDE RECORDS SUMMARY | 2024-12-16 18:01 | XMS_ITS | Encounter Summary ---
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
--- OUTSIDE RECORDS SUMMARY | 2024-12-16 18:01 | XMS_ITS | Clinical Summary ---
Author Organization [facility] Address [address] [place] [address] Care Team Providers Care Staffing Specialist Name Role Phone Steven Chavez MD Unavailable [phone] Brigido Bynum MD Primary Care Provider [phone] Source Comments [facility],non-owned Affiliates and Associated Physician Practices is amultiple site organization consisting of ambulatory clinics and hospital sitesin [place], [place], [place] and [place]. This disclosure is being madepursuant to the Care Everywhere program and may not contain all information available regarding this patient. 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 Creatinine 0.7 0.6 - 1.2 mg/dL [facility] Sodium 140 136 - 145 mmol/L [facility] Potassium 4.3 3.5 - 4.5 mmol/L [facility] Chloride 102 98 - 107 mmol/L [facility] CO2 31(H) 22 - 29 mmol/L [facility] Glucose 112 70 - 115 mg/dL [facility] Calcium 9.7 8.4 - 10.2 mg/dL [facility] Protein Total 7.8 6.0 - 8.3 g/dL [facility] Albumin 4.1 3.4 - 5.0 g/dL [facility] Bilirubin Total 1.0 0.2 - 1.2 mg/dL [facility] Alkaline Phosphatase 83 40 - 150 Units/L [facility] ALT 27 0 - 55 Units/L [facility] AST 21 5 - 34 Units/L [facility] Anion Gap 11 8 - 18 [facility] BUN/Creatinine Ratio 23 7 - 23 [facility] Osmolality Calculated 277 270 - 300 mOsm/kg [facility] Albumin/Globulin Ratio 1.1 1.1 - 2.3 [facility] eGFR >60 >60 mL/min/1.7 3 m2 [facility] Blood specimen (specimen) BLOOD SPECIMEN / Unknown 08/02/2014 9:19 AM CDT 08/02/2014 9:30 AM CDT us Deniz Bañuelos MD LAB - CHEMISTRY ORDERABLES [facility] Result [address] [phone] * HEPATITIS SCREEN ACUTE (08/24/2010 1:00 PM [...] for Kidney Disorders. Resulting Agency Comment [facility] [address] [facility] [id number] us Steven Chavez MD LAB - CHEMISTRY ORDERABLES Final Result [facility] INSURANCE BILL [address] [place] [address] from Last 3 Months or Most Recently Relevant to Health Maintenance Insurance AET AET Advance Directives * Full Code (Latest Code Status on File) Date Activated Date Inactivated Comments 07/13/2010 12:28 AM 07/14/2010 9:12 PM * Full Code Date Activated Date Inactivated Comments 07/12/2010 9:59 PM 07/13/2010 12:28 AM Care Teams Staffing Specialist Relationship Specialty Start Date End Date Brigido Bynum MD [address] [place] [address] PCP - General 11/20/18 Steven Chavez MD Neurology 08/24/10
== END 2024-12-16 09:25 | disposition home or self-care (01) ==
PROVIDERS: PCP Family Medicine
DX: Z12.5 Encounter for screening for malignant neoplasm of prostate (principal); E11.9 Type 2 diabetes mellitus without complications; I10 Essential (primary) hypertension; E66.9 Obesity, unspecified; Z68.31 Body mass index [BMI] 31.0-31.9, adult; Z79.4 Long term (current) use of insulin
CPT/HCPCS: 36415; 80053; 83036; 84153; G0103